=== PATIENT | female | born 2000 | race Caucasian/White ===

== ENCOUNTER 2021-07-03 14:31 | Outpatient (REF) | payer BC, SELFPAY ==
--- NOTE | ~2021-07-03 | XR_ITS ---
EXAMINATION: XR SINUSES CLINICAL INFORMATION: Sinusitis COMPARISON: None TECHNIQUE: 3 views of the sinuses were obtained. FINDINGS: Paranasal sinuses appear clear without air-fluid levels. No fractures are identified. No radiodense foreign bodies. XR/XR sinus min 3V IMPRESSION: Unremarkable sinus examination.
== END 2021-07-03 14:32 | disposition home or self-care (01) ==
LOC: HO.XRAY 14:31
PROVIDERS: Visit Provider Otolaryngology
DX: J32.9 Chronic sinusitis, unspecified (principal)
CPT/HCPCS: 70220

== ENCOUNTER 2024-10-15 09:33 | Outpatient (AMB) | payer BC, SELFPAY ==
--- NOTE | 2024-10-15 09:34 | MHC.PC.OV ---
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 Pt complains of chronic frontal PIERSON weekly on and off, usually in the mornings, relieved with aqvw-zuw-irnaeme NSAIDs. Patient denies any light sensitivity nausea vomiting any change in the pattern or intensity of the headaches for many years. Patient reports intermittent nasal congestion on and off but no allergic rhinitis. 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 1. Little interest or pleasure in doing things: not at all 2. Feeling down, depressed, or hopeless: not at all 3. Trouble falling or staying asleep, or sleeping too much: not at all 4. Feeling tired or having little energy: not at all 5. Poor appetite or overeating: not at all 6. Feeling bad about yourself - or that you are a failure or have let yourself or your family down: not at all 7. Trouble concentrating on things, such as reading the newspaper or watching television: not at all 8. Moving or speaking so slowly that other people could have noticed. Or the opposite - being so fidgety or restless that you have been moving around a lot more than usual: not at all 9. Thoughts that you would be better off or of hurting yourself in some way: not at all Total score: 0 Depression Screening Interpretation: Negative Depression Screening Done: Yes 05521 - PHQ-9 Billing: Yes Source: Developed by Drs. Mor Whyte, Marci Turner, Mati Jones and colleagues, with an educational elodia from [employer]. Thrive Questionnaire Date Thrive assessed: 10/15/24 I am a: Patient What is your living situation today?: I have a steady place to live Within the past 12 months, did the food you bought not last and you didn't have the money to get more?: Never true Within the past 12 months, did you worry whether your food would run out before you got money to buy more?: Never true Do you have trouble paying for medicines?: No Do you have trouble getting transportation to medical appointments?: No Do you have trouble paying your heating and electricity bill?: No Do you have trouble taking care of your child, family member or friend?: No Do you have trouble with day-to-day activities such as bathing, preparing meals, shopping, managing finances, etc.?: No Are you currently unemployed and looking for a job?: No Are you interested in more education?: Yes Please select the resources that you would like help with: None Currently or been in a relationship where the following occur: No concerns reported THRIVE Score: 0 AUDIT C Alcohol Use Questionnaire (AUDIT-C) 1. How often do you have a drink containing alcohol?: Never 3. How often do you have six or more drinks on one occasion?: Never Total Score: 0 DOC-7 AMB Questionnaire DOC-7 Date DOC - 7 assessed: 10/15/24 Feeling nervous, anxious, or on edge: 0 = Not at all Not being able to stop or control worryin = Not at all Worrying too much about different things: 0 = Not at all Trouble relaxin = Not at all Being so restless that it is hard to sit still: 0 = Not at all Becoming easily annoyed or irritable: 0 = Not at all Feeling afraid as if something awful might happen: 0 = Not at all Total DOC-7 score (0-4 normal; 5-9 mild; 10-14 moderate; 15-21 severe): 0 Source: Developed by Drs. Mor Whyte, Marci Turner, Mati Jones and colleagues, with an educational elodia from [employer]. DOC-7 Assessment Billing DOC-7 Assessment Tool: DOC-7 Assessment 08820 Review of Systems Const All systems reviewed & are unremarkable except as noted in HPI and below Eyes Reports no additional complaints ENT Reports no additional complaints Card Reports no additional complaints Resp Reports no additional complaints GI Reports no additional complaints Reports no additional complaints Physical exam (Primary Care) Vital Signs: Last Vital Signs Temp 97.6 F 10/15/24 09:36 Pulse 56 10/15/24 09:36 Resp 18 10/15/24 09:36 BP 110/68 10/15/24 09:36 Pulse Ox 100 10/15/24 09:36 Oxygen Delivery Method Room Air 10/15/24 09:36 BMI result Body Mass Index 25.2 Tobacco/Smoking Status: Tobacco use Status Tobacco use date assessed 10/15/24 10/15/24 09:41 Patient Tobacco Use Status Never used Tobacco 10/15/24 09:41 e-Cigarette/Vaping Use Never Used 10/15/24 09:41 PHQ-9: PHQ-9 Score PHQ-9: Total score 0 10/15/24 09:41 Depression Screening Interpretation: Negative Thrive Assessment: Date of Thrive Assessment Date Thrive assessed 10/15/24 10/15/24 09:41 Currently or been in a relationship where the following occur: No concerns reported Const General: no acute distress HENMT Head: Yes normal to inspection Face and sinus: Yes normal facial exam Mouth: Normal oral and palatal mucosa present Eyes General: appearance normal, both eyes and all related structures Neck Neck: Yes no lymphadenopathy and Yes supple Resp Effort & Inspection: normal respiratory effort Auscultation: clear to auscultation bilaterally Cardio Rhythm: regular rhythm Heart sounds: S1 normal heart sound present and S2 normal heart sound present GI Inspection: Yes normal to inspection Palpation (GI): Soft to palpation Percussion: Yes normal to percussion Auscultation: normal bowel sounds Coding Level of Care Code New Pt Prev Care 18-39yr(20123 Diagnoses Annual physical exam Z00.00 Normal pelvic exam Z01.419 Additional Codes DOC-7 Assessment Billing - DOC-7 Assessment Tool: DOC-7 Assessment 99905 ([id number]) PHQ-9 - 15699 - PHQ-9 Billing: Yes ([id number]) Assessment & Plan Assessment & Plan (1) Annual physical exam: Code(s): Z00.00 - Encounter for general adult medical examination without abnormal findings Category: Medical Plan: Well-balanced diet regular physical activity discussed with the patient. She will return for fasting blood work. For chronic headaches patient was advised to try ggtk-[id number]-chkdzso antihistamine and saline nasal spray and monitor the frequency, intensity. Patient will return for fasting blood work (2) Normal pelvic exam: Comment: customer experience retail clerk Yajaira Code(s): Z01.419 - Encounter for gynecological examination (general) (routine) without abnormal findings Category: Medical Plan: Follow-up with customer experience retail clerk Orders: Orders Complete Blood Count Auto Diff Today Z00.00 - Encounter for general adult medical examination without abnormal findings UA w Microscopic Today Z00.00 - Encounter for general adult medical examination without abnormal findings Comprehensive [place]. Panel Fast Today Z00.00 - Encounter for general adult medical examination without abnormal findings Lipid Panel Today Z00.00 - Encounter for general adult medical examination without abnormal findings TSH reflex Free T4 Today Z00.00 - Encounter for general adult medical examination without abnormal findings
[2024-10-15 09:36] VITALS: BP 110/68; PULSE 56; RESP 18; TEMP 36.4; O2SAT 100; BMI 25.2
--- OUTSIDE RECORDS SUMMARY | 2024-10-15 10:33 | XMS_ITS | Encounter Summary ---
Author Organization [facility] Address [address] [place] [address] Phone Care Team Providers Care Painter Helper Name Role Phone Tabitha Cook MD Primary Care Provider [phone] Encounter Details Date Type Department Care Team (Late st Contact Info) Description 10/22/2013 Documentation [facility] [place] [address] [place], [place] [id number] Family Medicine, Physician [facility] [place] [address] Social History Tobacco Use Types Packs/Day Years Used Date Smoking Tobacco: Never Assessed Comments Unknown Sex and Gender Information Value Date Recorded Sex Assigned at Female 01/14/2020 9:15 AM EDT Legal Sex Female 5:00 PM EDT Gender Identity Female 01/14/2020 9:15 AM EDT Sexual Orientation Straight 01/14/2020 9: 15 AM EDT documented as of this encounter Plan of Treatment Not on file documented as of this encounter Visit Diagnoses Not on filedocumented in this encounter Care Teams Painter Helper Relationship Specialty Start Date End Date Tabitha Cook MD PCP - General Pediatrics 01/17/21 10/03/22 documented as of this encounter
--- OUTSIDE RECORDS SUMMARY | 2024-10-15 10:33 | XMS_ITS | Encounter Summary ---
Author Organization [facility] Address [address] [place] [address] Phone Care Team Providers Care Lube Technician Name Role Phone Tabitha Cook MD Primary Care Provider [phone] Encounter Details Date Type Department Care Team (Late st Contact Info) Description 02/07/2017 Conversion Encounter [facility] - [address] [address] Social History Tobacco Use Types Packs/Day Years Used Date Smoking Tobacco: Never Comments:Never smoker Comments Unknown Sex and Gender Information Value [...] on filedocumented in this encounter Care Teams Lube Technician Relationship Specialty Start Date End Date Tabitha Cook MD PCP - General Pediatrics 01/17/21 10/03/22 documented as of this encounter
--- OUTSIDE RECORDS SUMMARY | 2024-10-15 10:33 | XMS_ITS | Clinical Summary ---
Author Organization [facility] Address [address] [place] [address] Care Team Providers Care Applications Engineer Name Role Phone No, Pcp Primary Care Provider Unavailabl e Allergies No known active allergies Medications multivitamin (THERAGRAN) tablet Take 1 tablet by mouth once a day. Active fish oil 340-1,000 mg capsule Take 1,000 mg by mouth once a day. Active magnesium gluconate (MAGONATE) 27 mg magnesium (500 mg) tablet Take 500 mg by mouth once a day. Active aspirin 325 mg EC tablet Take 1 tablet (325 mg total) by mouth once a day. 14 tablet 10/07/2023 Active Active Problems Problem Noted Date Diagnosed Date Synovitis of right knee 07/09/2023 Cyclops lesion of right knee 07/09/2023 Patellar tendonitis of right knee 11/27/2022 New ACL tear, right, initial encounter 2 Overview (10/28/2021): Added automatically from request for surgery [id number] Acute pain of right knee 07/12/2021 Family History Relation Name Status Comments Father Alive Mother Alive Social History Tobacco Use Types Packs/Day Years Used Date Smoking Tobacco: Never Smokeless Tobacco: Never Tobacco Cessation:Counseling Given: Not Answered Alcohol Use Standard Drinks/Week Comments Not Currently 0 (1 standard drink = 0.6 oz pur e alcohol) 2 drinks per month Comments No Sex and Gender Information Value Date Recorded Sex Assigned at Female 07/12/2021 12:03 PM EST Legal Sex Female 5:31 PM EST Gender Identity Female 07/12/2021 12:03 PM EST Sexual Orientation Straight 07/12/2021 12 :03 PM EST Last Filed Vital Signs Vital Sign Reading Time Taken Comments Blood Pressure - - Pulse - - Temperature - - Respiratory Rate - - Oxygen Saturation - - Inhaled Oxygen Concentration - - Weight 74.4 kg (164 lb) 10/01/2023 3:00 PM EDT Height 170.2 cm (5' 7 ) 10/01/2023 3:00 PM EDT Body Mass Index 25.69 10/01/2023 3:00 PM EDT Plan of Treatment Health Maintenance Due Date Last Done Comments HIV Screening 2000 Hepatitis C Screening 2000 Pap Smear 2000 Chlamydia Screening 2016 DTaP,Tdap,and Td Vaccines (7 - Td or Tdap) 03/03/2022 03/03/2012, 11/29/2004, 05/27/2002, Additional history exists COVID-19 Vaccine ( season) 2024 07/11/2021, 08/09/2020, 07/22/2020 Alcohol/Substance Use Screening 06/24/2024 Depression Screening and Follow-Up 06/24/2024 Social Drivers of Health Annual Screening 06/24/2024 Influenza Vaccine (Season Ended) 2025 05/16/2021, 05/20/2019, 02/27/2018, Additional history exists RSV Vaccine (60+ years old and patients) (1 - 1-dose 75+ series) 11/07/2075 Pneumococcal Vaccine: Pediatric (0-5 Years) and At-Risk Patients (6-50 Years) Aged Out 05/19/2001, 03/14/2001, 01/08/2001 No longer eligible based on patient's age to complete this topic Hepatitis B Vaccines Completed 08/01/2001, 2000, 2000 Varicella Vaccines Completed 01/08/2008, 02/16/2002 HPV Vaccines Completed 04/12/2014, 10/2013, 04/09/2013 Meningococcal Vaccine Completed 09/02/2017, 012 Insurance MOY LUDWIG [id number] [facility] [employer] Care Teams Applications Engineer Relationship Specialty Start Date End Date No, Pcp MOY PCP - General 10/02/22
--- OUTSIDE RECORDS SUMMARY | 2024-10-15 10:33 | XMS_ITS | Encounter Summary ---
Author Organization [facility] Address [address] [place] [address] Phone Care Team Providers Care Coconut Cooker Name Role Phone Tabitha Cook MD Primary Care Provider [phone] Encounter Details Date Type Department Care Team (Late st Contact Info) Description 08/30/2016 Documentation [facility] [place] Family Medicine [address] [place], [place] [id number] Family Medicine, Physician [facility] [place] [address] Social History Tobacco Use Types Packs/Day Years [...] on filedocumented in this encounter Care Teams Coconut Cooker Relationship Specialty Start Date End Date Tabitha Cook MD PCP - General Pediatrics 01/17/21 10/03/22 documented as of this encounter
--- OUTSIDE RECORDS SUMMARY | 2024-10-15 10:33 | XMS_ITS | Encounter Summary ---
Author Organization [facility] Address [address] [place] [address] Phone Care Team Providers Care Rate Engineer Name Role Phone Tabitha Cook MD Primary Care Provider [phone] Encounter Details Date Type Department Care Team (Late st Contact Info) Description 08/19/2010 [place] [facility] [place] [address] [place], [place] [phone] Family Medicine, Physician [facility] [place] [address] Social History Tobacco Use Types Packs/Day Years [...] on filedocumented in this encounter Care Teams Rate Engineer Relationship Specialty Start Date End Date Tabitha Cook MD PCP - General Pediatrics 01/17/21 10/03/22 documented as of this encounter
--- OUTSIDE RECORDS SUMMARY | 2024-10-15 10:33 | XMS_ITS | Encounter Summary ---
Author Organization [facility] Address [address] [place] [address] Phone Care Team Providers Care Evs Tech Name Role Phone Tabitha Cook MD Primary Care Provider [phone] Encounter Details Date Type Department Care Team (Late st Contact Info) Description 10/22/2016 Documentation [facility] [place] [address] [place], [place] [phone] Family Medicine, Physician [facility] [place] [address] Social History Tobacco Use Types Packs/Day Years [...] on filedocumented in this encounter Care Teams Evs Tech Relationship Specialty Start Date End Date Tabitha Cook MD PCP - General Pediatrics 01/17/21 10/03/22 documented as of this encounter
--- OUTSIDE RECORDS SUMMARY | 2024-10-15 10:33 | XMS_ITS | Clinical Summary ---
Author Organization [facility] Address [address] [place] [phone] Phone Care Team Providers Care Job Placement Officer Name Role Phone Unavailable Primary Care Provider Unavailabl e Allergies No known active allergies Medications ciclopirox 0.77 % cream APPLY TOPICALLY TO FEET TWICE DAILY. REPEAT NEEDED 1 Active Active Problems Problem Noted Date Diagnosed Date New ACL tear, right, initial encounter 2 Overview (01/06/2022): 09/2021, S/p post surgical repair 11/[address] Bailey at [facility] Assessment & Plan (01/06/2022 11:17 AM EDT): Pt compliant with post-operative bracing and care. Followed by [facility]. Sports PE form completed today allowing Rugby team participation but not actual play for her senior year. Dysmenorrhea 01/19/2021 Overview (01/19/2021): Moderate, well managed with OTC NSAIDs. Suggest beginning the day before her period for maximum benefit, consider OCP as needed Resolved Problems Problem Noted Date Diagnosed Date Resolved Date Chronic tension-type headach e, not intractable 10/10/2018 01/17/2021 Overview (10/10/2018): No red flags, very mild, resolve with NSAID or no meds. Assessment & Plan (10/10/2018 3:03 PM EDT): Discussed return precautions (worsening, red-flags). Pain of cervical facet joint 10/29/2016 01/17/2021 Overview (09/29/2017): Persistent neck pain after soccer injury 2014. Seen by Dr. Dickens's office 10/08 and diag with cervical facet injury. Referred to PT for active cervical stabilization program. After PT and some massage and chiropractic tx pain persists. MRI of C Spine shows 2 level annular tears. 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 To return to PT for C Spine strain and home exercise program. Referred to Dr Shultz for spinal injection for the annular tears. 10/09. Assessment & Plan (01/14/2020 9:24 AM EDT): Gets sore easily, but no pain anymore. Immunizations Immunization Administration Dates Next Due DTaP 5 11/29/2004, 2,05/19/2001,03/14,01/08/2001 H1N1 03/31/2009 HPV, Quadrivalent 04/12/2014,08/26/2013,04/09/20 13 Hep A, ped/adol 04/12/2014,12/14/2010 Hep B, ped/adol 08/01/2001,2000,2000 Hib (PRP-T) 02/16/2002, 1,03/14/2001,01/08 IPV 11/29/2004, 1,03/14/2001,01/08 Influenza, injectable, quadr ivalent, preservative free 05/16/2021,05/20/2019,02/27/2018,03/11,05/16/2016 Influenza, injectable, trivalent 03/31/2009,06/24,06/13/2005 Influenza, intranasal, quadrivalent 04/28/2015,1 ,04/09/2013 Influenza, intranasal, trivalent 03/03/2012,05/25 MMR 11/29/2004,11/11/2001 Meningococcal B Trumenba 05/20/2019,10/10/2018 Meningococcal Conj (Menactra) MCV4P 09/02/2017,0 03/03/2012 Pneumococcal Conjugate 05/19/2001,03/14/2001, Tdap 03/03/2012 Varicella 01/08/2008,02/16/2002 Family History Medical History Relation Name Comments Hypertension Father All Kidney failure Maternal Grandfather Cataracts Maternal Grandmother Glaucoma Maternal Grandmother Hypertension Maternal Grandmother Macular degeneration Maternal Grandmother Melanoma Maternal Grandmother Stroke Maternal Grandmother Hyperlipidemia Mother Kathleen Skin cancer Mother Kathleen Heart attack Paternal Grandfather Relation Name Status Comments Father All Alive Father: Alive a nd well Maternal Grandfather Maternal Grandmother Alive Mother Kathleen Alive Mother: Alive a nd well Other Family history of *Heart Disease, No family history of Obesity, Family history of Migraines, No family history of Developmental dislocation of hip, No family history of *Sudden /[place] under 55, Family history of Cancer, Family history of Allergies, No family history of Seizure disorder, No family history of ADD/ADHD, Family history of *CVA/Stroke, No family history of Deafness, No family history of Asthma, Family history of Sudden /[place] under 55, Family history of Melanoma, No family history of *Thrombophilia, No family history of Strabismus, No family history of Diabetes mellitus, No family history of Hyperlipidemia Paternal Grandfather Alive Paternal Grandmother Alive Social History Tobacco Use Types Packs/Day Years Used Date Smoking Tobacco: Never Smokeless Tobacco: Never Tobacco Cessation:Counseling Given: Yes Comments:Never smoker Alcohol Use Standard Drinks/Week Comments Yes 0 (1 standard drink = 0.6 oz pure alcohol) Social drinking in moderation 0-1x month Hunger/Food Answer Date Recorded In the last 12 months, did y ou or your family ever eat less than you felt you should because there wasn't enough money for food? No 01/04/2022 Stable Housing Answer Date Recorded Are you worried that in the next 2 months you may not have stable housing? No 01/04/2022 Transportation Concerns Answer Date Rec orded In the last 12 months, have you or your family ever had to go without healthcare because you didn't have a way to get there? No 01/04/2022 Hazards in Home Answer Date Recorded Think about the place you li ve. Do you have problems with any of the following? Pests (mice or roaches), mold, no/not working smoke detectors, water leaks, no window guards. No 2021 Financing Utilities Answer Date Recorde d In the last 12 months, has t he electric, gas, oil, or water company threatened to shut off your services in your home? No 01/04/2022 Safety at Home Answer Date Recorded Are you or your family worried about feeling saf e in your home? No 01/04/2022 Outside Support Answer Date Recorded Do you feel that you need mo re support from other people or programs to help you care for yourself or your family? No 01/04/2022 Understanding Health Concerns Answer Da te Recorded Do you need help understandi ng your or your child's healthcare needs (diagnosis, medications, plan, etc.)? No 01/04/2022 Financing Health Concerns Answer Date R ecorded In the last 12 months, was t here a time when your child needed to see a doctor or get medications or supplies but could not because of cost? No 01/04/2022 Missing School or Work Answer Date Roberto rded Did you or your child miss s chool or work because of a health problem that could have been avoided? No 01/04/2022 Comments No Sex and Gender Information Value Date Recorded Sex Assigned at Female 01/14/2020 9:15 AM EDT Legal Sex Female 5:00 PM EDT Gender Identity Female 01/14/2020 9:15 AM EDT Sexual Orientation Straight 01/14/2020 9: 15 AM EDT Last Filed Vital Signs Vital Sign Reading Time Taken Comments Blood Pressure 117/80 01/04/2022 10:13 AM EDT Pulse 93 01/04/2022 10:13 AM EDT Temperature 36.1 ??C (97 ??F) 06/20/2021 9:23 AM EST Respiratory Rate - - Oxygen Saturation 100% 02/27/2018 6:15 PM EDT Inhaled Oxygen Concentration - - Weight 73.2 kg (161 lb 6.4 oz) 01/04/2022 10:13 AM EDT Height 171.7 cm (5' 7.6 ) 01/04/2022 10:13 AM ED T Body Mass Index 24.83 01/04/2022 10:13 AM EDT Plan of Treatment Health Maintenance Due Date Last Done Comments DTaP,Tdap,and Td Vaccines (7 - Td or Tdap) 03/03/2022 03/03/2012, 11/29/2004, 05/27/2002, Additional history exists Influenza Vaccines (#1) 2024 05/16/20, 05/20/2019, 02/27/2018, Additional history exists COVID-19 Vaccine ( season) 2024 07/11/2021, 08/09/2020, 07/22/2020 Pneumococcal Vaccine Aged Out 05/19/2001, 03/14/2001, 01/08/2001 No longer eligible based on patient's age to complete this topic Hepatitis B Vaccines Completed 08/01/2001, 2000, 2000 HIB Vaccines Completed 02/16/2002, 04/25, 03/14/2001, Additional history exists IPV Vaccines Completed 11/29/2004, 04/25, 03/14/2001, Additional history exists MMR Vaccines Completed 11/29/2004, 11/11/2001 Varicella Vaccines Completed 01/08/2008, 02/16/2002 HPV Vaccines Completed 04/12/2014, 10/2013, 04/09/2013 Hepatitis A Vaccines Completed 04/12/2014, 12/15/19 11 Meningococcal Vaccine Completed 09/02/2017, 012 Men B Vaccine Completed 05/20/2019, 10/10/2018 Insurance [facility]
--- OUTSIDE RECORDS SUMMARY | 2024-10-15 10:33 | XMS_ITS | Referral Summary ---
Author Organization [facility] Address [address] [place] [address] Care Team Providers Care Manager Decision Support Name Role Phone No, Pcp Primary Care [...] (10/28/2021): Added automatically from request for surgery [id number] Acute pain of right knee 07/12/2021 Social History Tobacco Use Types Packs/Day Years [...] 10/01/2023 3:00 PM EDT Plan of Treatment Not on file Insurance [facility] [employer] Care Teams Manager Decision Support Relationship Specialty Start Date End Date Og Duran [place] PCP - General 10/02/22
== END 2024-10-15 10:00 | disposition home or self-care (01) ==
LOC: HO.HMCC 09:33
PROVIDERS: PCP Pediatrics; Visit Provider Internal Medicine
DX: Z00.00 Encounter for general adult medical examination without abnormal findings (principal); Z01.419 Encounter for gynecological examination (general) (routine) without abnormal findings

== ENCOUNTER → 2024-10-15 09:33 | Outpatient (BNVA) | payer BC, SELFPAY | PROVIDERS: PCP Pediatrics; Visit Provider Internal Medicine | DX: Z00.00 Encounter for general adult medical examination without abnormal findings (principal) | CPT/HCPCS: 96127 ==

== ENCOUNTER 2024-10-17 08:03 | Outpatient (REF) | payer BC, SELFPAY ==
--- OUTSIDE RECORDS SUMMARY | 2024-10-17 08:05 | XMS_ITS | Clinical Summary ---
Author Organization [place] [address] [address] [facility] Address [address] [facility] [place] [address] Phone Care Team Providers Care Brick Baker Name Role Phone Physician, No Pcp Primary Care Provider Unavaila ble Allergies No known active allergies Medications magnesium gluconate (MAG-G) 27 mg magnesium (500 mg) tablet Take 500 mg by mouth. Active multivitamin tablet Take 1 tablet by mouth 1 (one) time each day. Active omega-3 fatty acids-fish oil 340-1,000 mg capsule Take 1,000 mg by mouth. Active Encounters Date Type Department Care Team Description 07/31/2024 2:00 PM EST Office Visit Obstetrics and Gynecology [address] [address] Debra Cohn CNM Encounter for gynecological examination without abnormal finding (Primary Dx); Screen for STD (sexually transmitted disease) from Last 3 Months Surgical History Surgery Date Site/Laterality Comments ANTERIOR CRUCIATE LIGAMENT REPAIR 06/24/2021 - 2 Right Family History Medical History Relation Name Comments Breast cancer Neg Hx Ovarian cancer Neg Hx Uterine cancer Neg Hx Relation Name Status Comments Father Alive Mother Alive Social History Tobacco Use Types Packs/Day Years Used Date Smoking Tobacco: Never Smokeless Tobacco: Never Tobacco Cessation:Counseling Given: Not Answered Alcohol Use Standard Drinks/Week Comments Never 0 (1 standard drink = 0.6 oz pur e alcohol) Comments No Sex and Gender Information Value Date Recorded Sex Assigned at Not on file Legal Sex Female 8:27 PM EST Gender Identity Not on file Sexual Orientation Not on file Obstetrics History Para Term AB IAB SAB Ectopic Multiple Livin g Live Births 0 0 0 0 0 0 0 0 0 0 0 Last Filed Vital Signs Vital Sign Reading Time Taken Comments Blood Pressure 97/58 07/31/2024 2:11 PM EST Pulse 83 07/31/2024 2:11 PM EST Temperature - - Respiratory Rate - - Oxygen Saturation - - Inhaled Oxygen Concentration - - Weight 75 kg (165 lb 6.4 oz) 07/31/2024 2:11 PM EST Height 170.2 cm (5' 7 ) 07/31/2024 2:11 PM EST Body Mass Index 25.91 07/31/2024 2:11 PM EST Plan of Treatment Health Maintenance Due Date Last Done Comments DTaP,Tdap,and Td Vaccines (7 - Td or Tdap) 03/03/2022 03/03/2012, 11/29/2004, 05/27/2002, Additional history exists Depression Screening 07/19/2023 HIV Screening 07/19/2023 Hepatitis C Screening 07/19/2023 Social Influencers of Health Screening 07/19/2023 COVID-19 Vaccine ( season) 2024 07/11/2021, 08/09/2020, 07/22/2020 Influenza Vaccine (Season Ended) 2025 05/16/2021, 05/20/2019, 02/27/2018, Additional history exists Gonorrhea/Chlamydia Screening 07/31/2025 07/31/2024 Cervical Cancer Screening: Pap Smear 07/31/2027 07/31/2024 Pneumococcal Vaccine: Pediatrics (0 to 5 Years) and At-Risk Patients (6 to 64 Years) Aged Out 05/19/2001, 03/14/2001, 01/08/2001 No [...] 04/09/2013 Hepatitis A Vaccines Completed 04/12/2014, 12/15/19 Meningococcal ACWY Vaccine Completed 09/02/2017, Meningococcal B Vaccine Completed 05/20/2019, 10/10 RSV Immunization Patients Under 20 months Aged Out No longer eligible based on patient's age to complete this topic Procedures Procedure Name Priority Date/Time Associated Diagnosis Comments CHLAMYDIA TRACHOMATIS AND NEISSERIA GONORRHOEAE BY TMA, THINPREP Routine 07/31/2024 3:01 PM EST Encounter for gynecological examination without abnormal finding PAP SMEAR Routine 07/31/2024 3:01 PM EST Encounter for gynecological examination without abnormal finding TRICHOMONAS VAGINALIS PCR Routine 07/31/2024 3:01 PM EST Encounter for gynecological examination without abnormal finding from Last 3 Months Results * Chlamydia trachomatis and neisseria gonorrhoeae by tma, thinprep (07/31/2024 3:01 PM EST) N. gonorrhoeae, RNA Probe Negative Negative LAB MICROBIOLOGY METHOD 08/04/2024 1:11 PM EST [facility] Chlamydia, RNA Probe Negative Negative LAB MICROBIOLOGY METHOD 08/04/2024 1:11 PM EST [facility] Brushing/Spatula Cervix uteri structure / Unknown 07/31/2024 3:01 PM EST 08/04/2024 6:40 AM EST Debra Cohn CNM LAB CYTOLOGY ORDERABLES Final Result [facility] [address] [place] [address], * Trichomonas vaginalis molecular study (07/31/2024 3:01 PM EST) Trichomonas vaginalis Negative Negative LAB MICROBIOLOGY METHOD 08/04/2024 1:21 PM EST [facility] Brushing/Spatula Cervix uteri structure / Unknown 07/31/2024 3:01 PM EST 08/04/2024 6:40 AM EST Debra MUELLER LAB BLOOD ORDERABLES Final Res ult [facility] [address] [place] [address], * Pap smear (07/31/2024 3:01 PM EST) Interpretation Negative for intraepithelial lesion or malignancy 08/06/2024 10:00 AM [facility] General Categorization Negative 08/06/2024 10:00 AM [facility] LMP 07/08/2024 08/06/2024 10:00 AM [facility] Specimen Adequacy Satisfactory for evaluation, endocervical/[place] sformation zone component present 08/06/2024 10:00 AM [facility] Pap Methodology Liquid Based Pap Test 08/06/2024 10:00 AM [facility] Disclaimer The Pap test is a screening test which carries an inherent false negative rate. These test results should be correlated with the patient's clinical findings and history. This Pap test was processed using an automated screening system. Technical cytopathology services provided by [facility], at [address] [place] [address] (CLIA # [id number]/Albertina Martin MD, Learning Administrator.) 08/06/2024 10:00 AM [facility] Console Pap Interpretation Reported 08/06/2024 10:00 AM [facility] Brushing/Spatula Cervix uteri structure / Unknown 07/31/2024 3:01 PM EST 07/31/2024 3:01 PM EST Debra Cohn CNM LAB CYTOLOGY ORDERABLES Final Result [facility] [address] [place] [address], [place] [phone] from Last 3 Months Insurance [facility] Care Teams Brick Baker Relationship Specialty Start Date End Date Physician, No Pcp PCP - General 05/07/24
--- OUTSIDE RECORDS SUMMARY | 2024-10-17 08:05 | XMS_ITS | Clinical Summary ---
Author Organization [facility] Address [address] [place] [address] Phone Care Team Providers Care Molecular Geneticist Name Role Phone Unavailable Primary Care Provider Unavailabl e Allergies No known active allergies Medications ciclopirox 0.77 % cream APPLY TOPICALLY TO FEET TWICE DAILY. REPEAT NEEDED 1 Active Active Problems Problem Noted Date Diagnosed Date New ACL tear, right, initial encounter 2 Overview (01/06/2022): 09/2021, S/p post surgical repair 11/[address] Bailey at [facility] Assessment & Plan (01/06/2022 11:17 AM EDT): Pt compliant with post-operative bracing and care. Followed by [facility]. Sports PE form completed today allowing Rugby [...] of hip, No family history of *Sudden /[place] under 55, Family history of Cancer, Family history of Allergies, No family history of Seizure disorder, No family history of ADD/ADHD, Family history of *CVA/Stroke, No family history of Deafness, No family history of Asthma, Family history of Sudden /[place] under 55, Family history of Melanoma, No [...] Men B Vaccine Completed 05/20/2019, 10/10/2018 Insurance [facility] [employer]
--- OUTSIDE RECORDS SUMMARY | 2024-10-17 08:05 | XMS_ITS | Patient Health Record ---
Author Organization [facility] Address [address] [facility] [place] [address] Care Team Providers Care Drainlayer Name Role Phone Keesha Cross Unavailable [phone] Reason For Referral No Information Social History Tobacco Use: Social History Observation Description Date Details (start date - stop date) Never Smoker NA - NA Tobacco Use/Smoking Question Answer Notes Are you a: nonsmoker Additional Findings: Tobacco Non-User Current no n-smoker Alcohol Screen Question Answer Notes Did you have a drink containing alcohol in the p ast year? No Points 0 Interpretation Negative Tobacco use other than smoking: Question Answer Notes Are you an other tobacco user? No Plan Of Treatment No Information Insurance Providers Payer Name Payer Address Payer Phone Subscriber Number Group Number Insured Name Patient Relationship to Insured Coverage Start Date Coverage End Date [facility] [id number] [place] [address] [id number] All [place] Child - Insured has Financial Responsibility 0 Medical (General) History Surgical History Surgery Date(Month/Year) ACL Reconstructions 11-23-21
--- OUTSIDE RECORDS SUMMARY | 2024-10-17 08:05 | XMS_ITS | Encounter Summary ---
Author Organization [facility] Address [address] [place] [address] Phone Care Team Providers Care Insurance Follow Up Rep Name Role Phone Tabitha Cook MD Primary Care Provider [phone] Encounter Details Date Type Department Care Team (Late st Contact Info) Description 10/22/2013 Documentation [facility] [place] [address] [place], [place] [id number] Family Medicine, [place] [address] Social History Tobacco Use Types Packs/Day Years [...] on filedocumented in this encounter Care Teams Insurance Follow Up Rep Relationship Specialty Start Date End Date Tabitha Cook MD PCP - General Pediatrics 01/17/21 10/03/22 documented as of this encounter
--- OUTSIDE RECORDS SUMMARY | 2024-10-17 08:05 | XMS_ITS | Encounter Summary ---
Author Organization [facility] Address [address] [place] [address] Phone Care Team Providers Care Correspondence Transcriber Name Role Phone Tabitha Cook MD Primary Care Provider [phone] Encounter Details Date Type Department Care Team (Late st Contact Info) Description 02/07/2017 Conversion Encounter [facility] - [address] [address] Social History Tobacco Use Types Packs/Day Years [...] on filedocumented in this encounter Care Teams Correspondence Transcriber Relationship Specialty Start Date End Date Tabitha Cook MD PCP - General Pediatrics 01/17/21 10/03/22 documented as of this encounter
--- OUTSIDE RECORDS SUMMARY | 2024-10-17 08:05 | XMS_ITS | Encounter Summary ---
Author Organization [facility] Address [address] [place] [address] Phone Care Team Providers Care Marine Insurance Claim Examiner Name Role Phone Tabitha Cook MD Primary Care Provider [phone] Encounter Details Date Type Department Care Team (Late st Contact Info) Description 10/22/2016 Documentation [facility] [place] [facility] [address] [place], [place] [phone] Family Medicine, Physician [facility] [place] [address] Social History Tobacco Use Types Packs/Day Years [...] on filedocumented in this encounter Care Teams Marine Insurance Claim Examiner Relationship Specialty Start Date End Date Tabitha Cook MD PCP - General Pediatrics 01/17/21 10/03/22 documented as of this encounter
--- OUTSIDE RECORDS SUMMARY | 2024-10-17 08:05 | XMS_ITS | Encounter Summary ---
Author Organization [facility] Address [address] [place] [address] Phone Care Team Providers Care Chocolate Refining Roller Name Role Phone Tabitha Cook MD Primary Care Provider [phone] Encounter Details Date Type Department Care Team (Late st Contact Info) Description 08/30/2016 Documentation [facility] [place] Family Medicine [address] [place], [place] [phone] Family Medicine, Physician [facility] [place] [address] Social History Tobacco Use Types Packs/Day Years [...] on filedocumented in this encounter Care Teams Chocolate Refining Roller Relationship Specialty Start Date End Date Tabitha Cook MD PCP - General Pediatrics 01/17/21 10/03/22 documented as of this encounter
--- OUTSIDE RECORDS SUMMARY | 2024-10-17 08:05 | XMS_ITS ---
Author Organization [facility] Address [address] [place] [address] Care Team Providers Care Object Oriented Developer Name Role Phone Keesha Cross Unavailable [phone] REASON FOR VISIT ON Encounters Encounter Location Date Provider Diagnosis [facility] [address] [place] [address] 05/15/2023 Keesha Cross Plan Of Treatment No Information Progress Notes * Vida WITTDOB:2000 (22 yo F)Acc No.[id number]:05/15/2023 Patient:?Vida Witt :2000???Age:22 Y???Sex:Female Address:[address] [place] [address], [place], [address] * true * Date:? Generated for Reji clayton/Phillip/eTransmitting on:?10/17/2024 08:05 AM EDT
--- OUTSIDE RECORDS SUMMARY | 2024-10-17 08:05 | XMS_ITS | Encounter Summary ---
Author Organization [facility] Address [address] [place] [address] Phone Care Team Providers Care Electrical Logging Operator Name Role Phone Tabitha Cook MD Primary Care Provider [phone] Encounter Details Date Type Department Care Team (Late st Contact Info) Description 08/19/2010 Documentation [facility] [place] [address] [place], [place] [phone] Family Medicine, Physician [facility] [place] [address] Social History Tobacco Use Types Packs/Day Years [...] on filedocumented in this encounter Care Teams Electrical Logging Operator Relationship Specialty Start Date End Date Tabitha Cook MD PCP - General Pediatrics 01/17/21 10/03/22 documented as of this encounter
--- OUTSIDE RECORDS SUMMARY | 2024-10-17 08:05 | XMS_ITS | Referral Summary ---
Author Organization [facility] Address [address] [place] [address] Care Team Providers Care Suspension Cord Tier Name Role Phone No, Pcp Primary Care [...] (10/28/2021): Added automatically from request for surgery [id number] Acute pain of right knee 07/12/2021 Social [...] Plan of Treatment Not on file Insurance [facility] [employer] Care Teams Suspension Cord Tier Relationship Specialty Start Date End Date Og Duran [place] PCP - General 10/02/22
--- OUTSIDE RECORDS SUMMARY | 2024-10-17 08:05 | XMS_ITS ---
Author Organization [facility] Address [address] [place] [address] Care Team Providers Care Pressure Tank Operator Name Role Phone Keesha Cross Unavailable [phone] Social History Tobacco Use: Social History Observation [...] Are you an other tobacco user? No Vital Signs Height 5 ft 7 in in 07/23/2023 Weight 160 lb lbs 07/23/2023 BMI 25.06 kg/m2 07/23/2023 Encounters Encounter Location Date Provider Diagnosis [address] [address] 07/23/2023 Keesha Cross Plan Of Treatment No Information Progress Notes * Vida WITTDOB:2000 (23 yo F)Acc No.[id number]:07/23/2023 Progress Notes Patient:?EDUARKathiaia Provider:?Keesha Cross DPM :2000???Age:22 Y???Sex:Female D ate:07/23/2023 Address:[address] [place], [place] [address] [id number] Subjective: * Chief Complaints: * ??? * ROS:?General/Constitutional:?Nausea?denies.?Vomiting?denies.?Hunger Thirst?denies.?Loss appetite?denies.?Chills?denies.?Fatigue?denies.?Fever?denies.?Night Sweats?denies.?Unexplained weight loss?denies.?Unexplained weight gain?denies.?HEENTM:?Dentures?denies.?Dizziness?denies.?Glasses/contacts?admits.?Retinopathy?de nies.?Blurred/double vision?denies.?TMJ?denies.?Discharge/drainage?denies.?Implants?denies.?Sore throat?denies.?Dental implants?denies.?Hard of hearing ?denies.?Difficulty chewing/swallowing/speaking?denies.?Nose bleeds?denies.?Sore mouth?denies.?Respiratory:?On Oxygen?denies.?Pneumonia/pleurisy?denies.?Bronchitis?denies.?Emphysema?denies.?C oughing?denies.?Cough blood?denies.?Shortness of breath?denies.?Wheezing?denies.?Cardiovascular:?Pacemaker?denies.?MVP?denies.?WPW?denies.?CHF?denies.?Heart attack?denies.?Septal defect?denies.?Rapid beat?denies.?Chest pain ?denies.?Atrial Fib.?denies.?Murmur/Palpitations?denies.?Gastrointestinal:?Hemorrhoids?denies.?Stomach/Abdominal pain?denies.?Dark blood stool?denies.?Irritable bowel ?denies.?Constipation?denies.?Diarrhea?denies.?Hematology:?Swelling?denies.?Clots?denies.?Varicose Veins?denies.?Bruising?denies.?Bleeding problem?denies.?Genitourinary:?Blood urine?denies.?Frequent/Painfu/urination/bladder control?denies.?Kidney stones?denies.?Infection (UTI)?denies.?Nephropathy?denies.?sex trans dis (STD)?denies.?Prostate?denies.?Musculoskeletal:?Hammertoes?denies.?Bunions?denies.?Back Pain?denies.?Muscle Cramps/ Resting?denies.?Muscle cramps / walking?denies.?Generalized aches and pains?denies.?Weakness?denies.?Integ.:?Alexander?denies.?Scars?denies.?Corns/calluses?denies.?Ingrown nails?denies.?Painful nails?denies.?Open Sores?denies.?Rashes?denies.?Neurologic:?Difficulty sleeping?denies.?Brain disorder?denies.?Numbness?denies.?Balance trouble?denies.?Confusion?denies.?Fainting/blackouts?denies.?Tingling?denies.?Tr emors?denies.? * Medical History:? * Surgical History:?ACL Recons tructions 11-23-21. * Family History:?Mother: tania good?Father: alive, diagnosed with Unspecified essential hypertension.?Maternal Grand Mother: poor circulation, diagnosed with Family history of arthritis.?Paternal Grand Mother: diagnosed with Family history of arthritis.?Paternal Grand Father: diagnosed with Family history of arthritis.?Maternal Grand Father: diagnosed with Family history of arthritis, Unspecified essential hypertension, Other malignant neoplasm of unspecified site.? * Social History:?Tobacco Use:?Tobacco Use/Smoking?Are you a:?nonsmoker ?Additional Findings: Tobacco Non-User?Current non-smoker ?Tobacco use other than smoking?Are you an other tobacco user??No ???Drugs/Alcohol:?Drugs?Have you used drugs other than those for medical reasons in the past 12 months??No ?Alcohol Screen?Did you have a drink containing alcohol in the past year??No ?Points?0 ?Interpretation?Negative ???Miscellaneous:?Caffeine: yes, frequency: Occassional. ?Children: no. ?Exercise: yes, Yoga, Daily Gym Visits, Active walker. ?Marital status: single. 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 Objective: * Vitals:?Ht: 5 ft 7 in, Wt:16 0 lb, BMI:25.06, Shoe size: 9, Ht-cm: 170.18 cm, Wt- k.57 kg. Assessment: Plan: * Treatment: * Images: * The named appointment provid er may or may not be the originator of this progress note, and it is not deemed complete until electronically signed by the appointment provider. Sign off status: Pending * Provider:?Keesha Cross DPM Date:? Generated for Reji clayton/Phillip/Carlositting on:?10/17/2024 08:05 AM EDT
--- OUTSIDE RECORDS SUMMARY | 2024-10-17 08:06 | XMS_ITS | Clinical Summary ---
Author Organization [facility] Address [address] [place] [address] Care Team Providers Care Field Servicer Name Role Phone No, Pcp Primary Care [...] (10/28/2021): Added automatically from request for surgery [id number] Acute pain of right knee 07/12/2021 Family [...] Vaccine Completed 09/02/2017, 012 Insurance MOY LUDWIG [id number] [facility] [employer] Care Teams Field Servicer Relationship Specialty Start Date End Date No, Pcp MOY PCP - General 10/02/22
[2024-10-17 08:18] LABS: MANUAL DIFF FLAG NO
[2024-10-17 08:52] LABS: Basophils Absolute Auto 0.1 X10*3/uL (0.0-0.2); Basophils Percent Auto 1.1 % (0-2); Eosinophils Absolute Auto 0.2 X10*3/uL (0.0-0.4); Eosinophils Percent Auto 4.2 % (0-4); Hematocrit 36.4 % (37.0-47.0); Hemoglobin 12.6 g/dl (12.0-16.0); Imm Gran Abs Auto 0.01 X10*3/uL (0.00-0.03); Imm Gran Pct Auto 0.2 % (0.0-0.4); Lymphocytes Absolute Auto 2.4 X10*3/uL (1.2-4.9); Lymphocytes Percent Auto 45.2 % (20-40); Mean Corpuscular HGB Conc 34.6 g/dl (31.0-35.0); Mean Corpuscular Hemoglobin 30.7 pg (27.0-33.0); Mean Corpuscular Volume 88.6 fL (80.0-98.0); Mean Platelet Volume 10.4 fL (9.4-12.3); Monocytes Absolute Auto 0.3 X10*3/uL (0.1-1.2); Neutrophils Absolute Auto 2.3 x10*3/uL (2.0-8.3); Neutrophils Percent Auto 43.3 % (45-73); Platelet Count 220 X10*3/uL (160-400); Red Blood Count 4.11 X10*6/uL (4.20-5.50); Red Cell Distribution Width 13.1 % (11.0-16.0); White Blood Count 5.3 X10*3/uL (4.8-10.8)
[2024-10-17 09:38] LABS: Alanine Aminotransferase 27 U/L (0-31); Albumin Level 4.3 g/dL (3.5-5.0); Alkaline Phosphatase 39 U/L (39-117); Anion Gap 11 (12-20); Aspartate Amino Transferase 27 U/L (5-31); Bilirubin Total 0.4 mg/dL (0.0-1.0); Blood Urea Nitrogen 14 mg/dL (9-16); Carbon Dioxide 23 mmol/L (22-29); Chloride 109 mmol/L (96-108); Cholesterol 197 mg/dL (<200); Estimated Glomerular Filt Rate > 60; Glucose Fasting 85 mg/dL (60-99); HDL Cholesterol 63 mg/dL (>40); LDL Cholesterol Calculated 127 mg/dL (<100); Potassium 4.1 mmol/L (3.3-5.1); Sodium 139 mmol/L (135-145); Total Protein 6.6 g/dL (6.5-8.0); Triglycerides 39 mg/dL (<150)
[2024-10-17 09:56] LABS: TSH reflex Free T4 1.25 uIU/mL (0.32-4.0)
== END 2024-10-17 08:04 | disposition home or self-care (01) ==
LOC: HO.LAB 08:03
PROVIDERS: PCP Internal Medicine; Visit Provider Internal Medicine
DX: Z00.00 Encounter for general adult medical examination without abnormal findings (principal)
CPT/HCPCS: 36415; 80053; 80061; 84443; 85025

== ENCOUNTER 2025-06-09 12:01 | Outpatient (AMB) | payer BC, SELFPAY ==
--- OUTSIDE RECORDS SUMMARY | 2025-03-30 08:00 | XMS_ITS ---
Author Organization [facility] Address [address] [place] [id number] Care Team Providers Care Collection Technician Name Role Phone Roxana Gonzalez MD Primary Care Provider Keesha Stock Unavailable [phone] Allergies No Known Allergies Social History Tobacco [...] Encounters Encounter Location Date Provider Diagnosis [address] [address] 03/30/2025 Keesha Cross Plan Of Treatment Next Appt Details Provider Name:Kateryna sterling, 06/14/2025 02:00:00 PM, [address] [place] [address], [phone], Progress Notes * Vida WITTDOB:2000 (24 yo F)Acc No.[id number]:03/30/2025 Progress Notes Patient: Vida LOWE Provider: Aristides Cross DPM :2000 A ge:24 Y S ex:Female Date:03/30/2025 Address:[address] [place], [place] [address], [id number] Pcp:Roxana Gonzalez MD Subjective: * Chief Complaints: [...] enies. 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 C [...] Aristides Cross DPM Date: Generated for Reji clayton/Phillip/Manolo on: 08/10/2024 03:54 PM EST
--- OUTSIDE RECORDS SUMMARY | 2025-06-06 23:17 | XMS_ITS | Encounter Summary ---
Author Organization [facility] Address [address] [place] [id number] Phone Care Team Providers Care Saw Operator Name Role Phone Roxana Gonzalez MD Primary Care Provider [phone] Reason for Visit * Reason Comments Abdominal Pain Encounter Details Date Type Department Care Team (Late st Contact Info) Description 06/06/2025 11:17 PM EST - 06/07/2025 12:24 AM EST Emergency [facility] [address] [place] [address] Dari Chen MD [address] [place] [address] [email or web address] Discharge Disposition: Home or Self Care Social History Tobacco Use Types Packs/Day Years Used Date Smoking Tobacco: Never Assessed Education Answer Date Recorded Are you interested in more education? Not on tommie e 10/20/2022 Are you concerned about learning? Not on file 10/20/2022 No 10/20/2022 No 10/20/2022 Digital Access Answer Date Recorded No 11/18/2022 No 11/18/2022 Reliable internet access at home? Not on file 11/18/2022 Device with a working camera? Not on file Intimate Partner Violence Answer Date R ecorded Are you denied basic needs s uch as food, clothing, or medical care? No 06/06/2025 In the past 12 months have y ou been in a relationship with a person who hurts, threatens, or tries to control you? No 06/06/2025 Are you denied basic needs s uch as food, clothing, or medical care? No 06/06/2025 In the past 12 months have y ou been in a relationship with a person who hurts, threatens, or tries to control you? No 06/06/2025 Comments Unknown Sex and Gender Information Value Date Recorded Sex Assigned at Not on file Legal Sex Female 9:46 AM EDT Gender Identity Not on file Sexual Orientation Not on file documented as of this encounter Last Filed Vital Signs Vital Sign Reading Time Taken Comments Blood Pressure 102/69 06/07/2025 12:22 AM EST Pulse 75 06/07/2025 12:22 AM EST Temperature 36.1 C (97 F) 06/07/2025 12:22 AM EST Respiratory Rate 18 06/07/2025 12:22 AM EST Oxygen Saturation 99% 06/07/2025 12:22 AM EST Inhaled Oxygen Concentration - - Weight 74.8 kg (165 lb) 06/07/2025 12:22 AM EST Height 170.2 cm (5' 7 ) 06/07/2025 12:22 AM EST Body Mass Index 25.84 06/07/2025 12:22 AM EST documented in this encounter Functional Status * Calculated C-SSRS Risk Score (Lifetime/Recent) Answer Date of Assessment Author No Risk Indicated 06/06/2025 9:04 PM EST Dai Potts RN * [place] Suicide Severity Rating Scale (Screener/Recent Self-Report) Question Answer Date of Assessment Author 1. Wish to be (Past 1 Month) No 06/06/2025 9:04 PM EST Dai Boyce RN 2. Non-Specific Active Suicidal Thoughts (Past 1 Month) No 06/06/2025 9:04 PM EST Dai Boyce RN 6. Suicidal Behavior (Lifetime) No 06/06/2025 9:04 PM EST Dai Boyce RN documented as of this encounter Discharge Instructions * Discharge Instructions* Dari Chen MD - 06/07/2025 12:15 AM EST You were seen in the emergency department for upper abdominal pain. I am pleased that your pain resolved. Your blood work today did show elevations in your liver function test (AST and ALT). I provided you copies of your results from today so you can share them with your PCP. We did discuss imagingwith CT scan but at this time given your reassuring exam, feel the risk of radiation outweighs the b enefit. If your pain returns, you develop fever or vomiting, do not hesitate to return to the emergency department for further evaluation and workup. I would like you to follow-up with your PCP this week to have your liver function rechecked. Avoid Tylenol and alcohol at this time as this can worsen liver function. * Attachments The following attachments cannot be sent through Care Everywhere. * LFTs (Liver Function Tests) (Egyptian) * Abdominal Pain (Egyptian) documented in this encounter Procedure Notes * Dari Chen MD - 06/06/2025 11:28 PM ESTAssociated Order(s): Bedside Ultrasound Procedure Bedside Ultrasound Date/Time: 06/06/2025 11:28 PM Performed by: Dari Chen MD Authorized by: Dari Chen MD Exam Type: Aorta, Renal and Biliary Aorta Exam Findings & Impression: Indications: patient with upper abdominal pain Aorta Diameter (cm): the entire abdominal aorta from the SMA to the distal aorta was visualized as less than 3 cm in diameter Overall Impression: negative Renal Exam Findings & Impression: Indications: patient with abdominal pain Right Kidney: the right kidney was visualized and hydronephrosis was not present Overall Impression: negative Biliary Exam Findings & Impression: Indications: patient with abdominal pain and epigastric pain Gallstones: the gallbladder was visualized and gallstones were not present Gallbladder Wall Thickening: the gallbladder was visualized and the gallbladder wall was not thickened Gallbladder Anterior Wall Thickness (mm): 2 Pericholecystic Fluid Present: the gallbladder was visualized and pericholecystic fluid was not present Sonographic Diaz's: the gallbladder was visualized and a Sonogrphic Diaz's sign was not present Overal Impression: negative Images: Images Saved: Yes Accession Number: [id number] documented in this encounter ED Notes * Lina Hudson RN - 06/07/2025 12:24 AM EST ED Discharge Nursing Note Pt medically cleared and prepared for discharge. Discharge instructions reviewed, pt verbalized understanding. Pt A&O x4, ambulatory with a steady gait. Pt denies any new or worsening medical complaints. Pt has safe ride home. All belongings with patient, all safety maintained. * Dai Boyce RN - 06/06/2025 8:55 PM EST Patient comes in with abdominal pain. Has happened last night and relieved with gas x, tired to take it again tonight with no relief. Describes pain as constricting in her upper abdomen. Denies chestpain. Endorses pain with inspiration. No changes in diet. Denies vomiting and diarrhea. * Dari Chen MD - 06/06/2025 8:53 PM EST Chief Complaint Chief Complaint Patient presents with Abdominal Pain History of Present Illness The patient, Vida Myles,is a 24 y.o. female who presents for evaluation of Abdominal Pain The patient reports for evaluation of upper abdominal pain that has now resolved. Patient reports episode last night around 5 PM after eating dinner. She reports sharp pain across the upper abdomen that resolved after Gas-X. She reports was eating dinner again tonight and had the same pain but it was more severe and lasted longer. She again took Gas-X and on my evaluation she is pain- free. She denies prior abdominal surgeries. She denies fevers, sick contacts, recent antibiotics or recent travel. Unless otherwise specified, I have reviewed and agree with the triage and nursing notes. ROS A ten point review of systems was negative except what was noted in the HPI. Review of Systems Past Medical History No past medical history on file. Past Surgical History No past surgical history on file. Home Medications Prior to Admission medications Not on File Allergies No Known Allergies Social and Family History Social History Tobacco Use Smoking status: Not on file Smokeless tobacco: Not on file Substance Use Topics Alcohol use: Not on file Social History Substance and Sexual Activity Drug Use Not on file No family history on file. Physical Exam Vital Signs: ED Triage Vitals Encounter Vitals Group BP 06/06/25 2100 125/85 Girls Systolic BP Percentile -- Girls Diastolic BP Percentile -- Boys Systolic BP Percentile -- Boys Diastolic BP Percentile -- Heart Rate 06/06/252056 82 Respiratory Rate 06/06/252056 20 Temperature 06/06/252056 36.4 ??C (97.5 ??F) Temp src -- SpO2 06/06/252056 99 % Weight -- Height -- Head Circumference -- Peak Flow -- Pain Score -- Pain Loc -- Pain Education -- Exclude from Growth Chart -- Physical Exam Vitals and nursing note reviewed. Constitutional: General: She is not in acute distress. HENT: Head: Normocephalic and atraumatic. Eyes: Conjunctiva/sclera: Conjunctivae normal. Cardiovascular: Rate and Rhythm: Normal rate and regular rhythm. Pulmonary: Effort: Pulmonary effort is normal. No respiratory distress. Abdominal: General: There is no distension. Tenderness: There is no abdominal tenderness. Musculoskeletal: General: No deformity or signs of injury. Cervical back: Normal range of motion and neck supple. Skin: General: Skin is warm and dry. Findings: No rash. Neurological: General: No focal deficit present. Mental Status: She is alert and oriented to person, place, and time. Psychiatric: Mood and Affect: Mood normal. Behavior: Behavior normal. Laboratory Testing Results for orders placed or performed during the hospital encounter of 06/06/25 CBC and Differential Specimen: Blood Result Value Ref Range WBC 7.52 4.00 - 11.00 K/uL RBC 3.88 (L) 4.00 - 5.20 M/uL Hemoglobin 12.0 12.0 - 16.0 g/dL Hematocrit 34.8 (L) 36.0 - 46.0 % MCV 89.7 80.0 - 100.0 fL MCH 30.9 27.0 - 31.0 pg MCHC 34.5 32.0 - 36.0 g/dL MPV 9.8 8.4 - 12.0 fL RDW-CV 13.3 11.5 - 14.5 % PLT 260 150 - 450 K/uL Neutrophils 40.6 % Lymphocytes 48.1 % Monocytes 6.9 % Eosinophils 3.5 % Basophils 0.8 % Imm Grans 0.1 % NRBC 0.0 <=0.0 /100 WBCs Absolute Neutrophils 3.05 1.92 - 7.60 K/uL Absolute Lymphocytes 3.62 0.72 - 4.10 K/uL Absolute Monocytes 0.52 0.16 - 1.10 K/uL Absolute Eosinophils 0.26 0.00 - 0.50 K/uL Absolute Basophils 0.06 0.00 - 0.15 K/uL Absolute Imm Grans 0.01 0.00 - 0.09 K/uL Absolute NRBC 0.00 <=0.00 K cells/uL Absolute Neutrophils 3.05 1.92 - 7.60 K/uL Diff Type Auto Lipase Specimen: Blood Result Value Ref Range Lipase 107 (H) 13 - 60 U/L Hepatic Panel (LFTs) Specimen: Blood Result Value Ref Range AST 152 (H) <33 U/L ALT 152 (H) <34 U/L Alkaline Phosphatase 71 40 - 130 U/L Bilirubin, Total 0.3 0.0 - 1.2 mg/dL Bilirubin, Direct 0.1 0.0 - 0.3 mg/dL Total Protein 7.3 6.4 - 8.3 g/dL Albumin 5.0 3.5 - 5.2 g/dL Globulin 2.3 1.9 - 4.1 g/dL Human Chorionic Gonadotropin (HCG), Qualitative, Blood Specimen: Blood Result Value Ref Range hCG Qualitative Negative Negative Basic Metabolic Panel (BMP) Specimen: Blood Result Value Ref Range Sodium 139 136 - 145 mmol/L Potassium 3.6 3.4 - 5.1 mmol/L Chloride 103 98 - 107 mmol/L CO2 24 20 - 31 mmol/L BUN 13 6 - 23 mg/dL Creatinine 0.80 0.50 - 1.00 mg/dL Glucose 92 70 - 99 mg/dL Calcium 9.5 8.5 - 10.5 mg/dL eGFR 105 >59 mL/min/1.73m2 Anion Gap 12 3 - 17 mmol/L Radiology Testing Bedside Ultrasound Final Result MDM Assessment and Plan: Patient presents with upper abdominal pain resolved after Gas-X at home. Happened twice over the last 2 days. Afebrile with stable vitals and benign abdominal exam. Patient does have a new transaminitis with AST and ALT 152, no obstructive picture. Bedside ultrasound of the aorta, gallbladder and right kidney did not reveal any concerning pathology. Recent benefits of CT scan discussed with patient, given reassuring exam, no leukocytosis and asymptomatic I feel the radiation risk outweighs the diagnostic benefit at this time. As discussed with the patient and her father at bedside were in agreement. She understands that she needs to get her LFTs rechecked with her PCP within the next week and have a low threshold to return to the emergency department for new or recurrent symptoms. Patientand father expressed understanding and agreement. Stable for discharge Category 1: Tests, Studies or Independent Historians: Independent Historian: Independent history was obtained by family/guardian. Father at bedside. Category 2 and 3: Independent Interpretation of Tests, Consideration of Tests, or External Discussion of Results: Labs: Laboratory studies were interpreted. Radiology: Radiology study was considered but not performed. As above. Clinical Impressions as of 06/07/2539 Epigastric pain Transaminitis Critical Care Time: 0 minutes Clinical Impression Diagnosis Description Comment Final diagnoses Epigastric pain Epigastric pain -- Transaminitis Transaminitis -- Disposition: Home Dari Chen MD 06/07/2539 documented in this encounter Plan of Treatment Scheduled Orders Name Type Priority Associated Diagnoses Orde r Schedule Urinalysis with Reflex to Urine Culture Lab STAT Once for 1 Occur rences starting 06/06/2025 until 06/06/2025 documented as of this encounter Procedures Procedure Name Priority Date/Time Associated Diagnosis Comments US BEDSIDE Routine 06/06/2025 11:28 PM EST HCG, SERUM QUALITATIVE STAT 06/06/2025 9:14 PM EST CBC AND DIFFERENTIAL STAT 06/06/2025 9:14 PM EST LFTS (HEPATIC PANEL) STAT 06/06/2025 9:14 PM EST CBC AND DIFFERENTIAL STAT 06/06/2025 9:14 PM EST LIPASE STAT 06/06/2025 9:14 PM EST BASIC METABOLIC PANEL (BMP) STAT 06/06/2025 9:14 PM EST ECG 12-LEAD STAT 06/06/2025 9:02 PM EST documented in this encounter Results * US BEDSIDE (06/06/2025 11:28 PM EST) Anatomical Region Laterality Modality Ultrasound Narrative 06/06/2025 11:28 PM EST Dari Chen MD 06/07/2025 12:01 AM Bedside Ultrasound Date/Time: 06/06/2025 11:28 PM Performed by: Dari Chen MD Authorized by: Dari Chen MD Exam Type: Aorta, Renal and Biliary Aorta Exam Findings & Impression: Indications: patient with upper abdominal pain Aorta Diameter (cm): the entire abdominal aorta from the SMA to the distal aorta was visualized as less than 3 cm in diameter Overall Impression: negative Renal Exam Findings & Impression: Indications: patient with abdominal pain Right Kidney: the right kidney was visualized and hydronephrosis was not present Overall Impression: negative Biliary Exam Findings & Impression: Indications: patient with abdominal pain and epigastric pain Gallstones: the gallbladder was visualized and gallstones were not present Gallbladder Wall Thickening: the gallbladder was visualized and the gallbladder wall was not thickened Gallbladder Anterior Wall Thickness (mm): 2 Pericholecystic Fluid Present: the gallbladder was visualized and pericholecystic fluid was not present Sonographic Diaz's: the gallbladder was visualized and a Sonogrphic Diaz's sign was not present Overal Impression: negative Images: Images Saved: Yes Accession Number: [id number] Dari Chen MD IMG POINT OF CARE EXAMS Cate l Result * (ABNORMAL) CBC and Differential (06/06/2025 9:14 PM EST) WBC 7.52 4.00 - 11.00 K/uL 06/06/2025 9:30 PM [facility] RBC 3.88(L) 4.00 - 5.20 M/uL 06/06/2025 9:30 PM [facility] Hemoglobin 12.0 12.0 - 16.0 g/dL 06/06/2025 9:30 PM [facility] Hematocrit 34.8(L) 36.0 - 46.0 % 06/06/2025 9:30 PM [facility] MCV 89.7 80.0 - 100.0 fL 06/06/2025 9:30 PM [facility] MCH 30.9 27.0 - 31.0 pg 06/06/2025 9:30 PM [facility] MCHC 34.5 32.0 - 36.0 g/dL 06/06/2025 9:30 PM [facility] MPV 9.8 8.4 - 12.0 fL 06/06/2025 9:30 PM [facility] RDW-CV 13.3 11.5 - 14.5 % 06/06/2025 9:30 PM [facility] PLT 260 150 - 450 K/uL 06/06/2025 9:30 PM [facility] Neutrophils 40.6 % 06/06/2025 9:30 PM [facility] Lymphocytes 48.1 % 06/06/2025 9:30 PM [facility] Monocytes 6.9 % 06/06/2025 9:30 PM [facility] Eosinophils 3.5 % 06/06/2025 9:30 PM [facility] Basophils 0.8 % 06/06/2025 9:30 PM [facility] Imm Grans 0.1 % 06/06/2025 9:30 PM [facility] NRBC 0.0 <=0.0 /100 WBCs 06/06/2025 9:30 PM [facility] Absolute Neutrophils 3.05 1.92 - 7.60 K/uL 06/06/2025 9:30 PM [facility] Absolute Lymphocytes 3.62 0.72 - 4.10 K/uL 06/06/2025 9:30 PM [facility] Absolute Monocytes 0.52 0.16 - 1.10 K/uL 06/06/2025 9:30 PM [facility] Absolute Eosinophils 0.26 0.00 - 0.50 K/uL 06/06/2025 9:30 PM [facility] Absolute Basophils 0.06 0.00 - 0.15 K/uL 06/06/2025 9:30 PM [facility] Absolute Imm Grans 0.01 0.00 - 0.09 K/uL 06/06/2025 9:30 PM [facility] Absolute NRBC 0.00 <=0.00 K cells/uL 06/06/2025 9:30 PM [facility] Absolute Neutrophils 3.05 1.92 - 7.60 K/uL 06/06/2025 9:30 PM [facility] Comment:Automated cell count . Manual ANC may differ if performed. Diff Type Auto 06/06/2025 9:30 PM [facility] Blood (Blood) Venipuncture / Unknown 06/06/2025 9:14 PM EST 06/06/2025 9:28 PM EST us Kyle Ohara MD LAB BLOOD BKR ORDERABLES Final Result Performing Organization Address [facility]/ZIP Co de Phone Number [address] [address] * (ABNORMAL) Lipase (06/06/2025 9:14 PM EST) Lipase 107(H) 13 - 60 U/L 06/06/2025 9:52 PM [facility] Blood (Blood) Venipuncture / Unknown 06/06/2025 9:14 PM EST 06/06/2025 9:28 PM EST us Kyle Ohara MD LAB BLOOD BKR ORDERABLES Final Result Performing Organization Address City/[facility]/ZIP Co de Phone Number [address] [phone] * (ABNORMAL) Hepatic Panel (LFTs) (06/06/2025 9:14 PM EST) AST 152(H) <33 U/L 06/06/2025 9:52 PM [facility] ALT 152(H) <34 U/L 06/06/2025 9:52 PM [facility] Alkaline Phosphatase 71 40 - 130 U/L 06/06/2025 9:52 PM [facility] Bilirubin, Total 0.3 0.0 - 1.2 mg/dL 06/06/2025 9:52 PM [facility] Bilirubin, Direct 0.1 0.0 - 0.3 mg/dL 06/06/2025 9:52 PM [facility] Total Protein 7.3 6.4 - 8.3 g/dL 06/06/2025 9:52 PM [facility] Albumin 5.0 3.5 - 5.2 g/dL 06/06/2025 9:52 PM [facility] Globulin 2.3 1.9 - 4.1 g/dL 06/06/2025 9:52 PM [facility] Blood (Blood) Venipuncture / Unknown 06/06/2025 9:14 PM EST 06/06/2025 9:28 PM EST us Kyle Ohara MD LAB BLOOD BKR ORDERABLES Final Result Performing Organization Address [facility]/ZIP Co de Phone Number [address] [phone] * Human Chorionic Gonadotropin (HCG), Qualitative, Blood (06/06/2025 9:14 PM EST) Pathologist [facility] [place] hCG Qualitative Negative Negative 9:45 PM [facility] Blood (Blood) Venipuncture / Unknown 06/06/2025 9:14 PM EST 06/06/2025 9:28 PM EST us Kyle Ohara MD LAB BLOOD BKR ORDERABLES Final Result [address] [address] * Basic Metabolic Panel (BMP) (06/06/2025 9:14 PM EST) Pathologist [facility] [place] Sodium 139 136 - 145 mmol/L 06/06/2025 9:52 PM [facility] Potassium 3.6 3.4 - 5.1 mmol/L 06/06/2025 9:52 PM [facility] Chloride 103 98 - 107 mmol/L 06/06/2025 9:52 PM [facility] CO2 24 20 - 31 mmol/L 06/06/2025 9:52 PM [facility] BUN 13 6 - 23 mg/dL 06/06/2025 9:52 PM [facility] Creatinine 0.80 0.50 - 1.00 mg/dL 06/06/2025 9:52 PM [facility] Glucose 92 70 - 99 mg/dL 06/06/2025 9:52 PM [facility] Calcium 9.5 8.5 - 10.5 mg/dL 06/06/2025 9:52 PM [facility] eGFR 105 >59 mL/min/1.7 3m2 06/06/2025 9:52 PM [facility] Comment:Estimated glomerular filtration rate calculated using the CKD-EPI refit equation. Anion Gap 12 3 - 17 mmol/L 06/06/2025 9:52 PM [facility] Blood (Blood) Venipuncture / Unknown 06/06/2025 9:14 PM EST 06/06/2025 9:28 PM EST us Kyle Ohara MD LAB BLOOD BKR ORDERABLES Final Result [address] [address] * ECG 12-LEAD (06/06/2025 9:02 PM EST) Ventricular Rate EKG/MIN 77 BPM [facility] Atrial Rate 77 BPM [facility] AK Interval 120 ms [facility] QRS Duration 72 ms [facility] QT Interval 374 ms [facility] QTC Interval 423 ms [facility] P [place] 7 degrees [facility] R Wave [place] 26 degrees [facility] T Wave [place] 36 degrees [facility] 06/06/2025 9:02 PM EST 06/07/2025 3:21 PM EST Narrative [facility] - 06/07/2025 3:21 PM EST Normal sinus rhythm Normal ECG No previous ECGs available Confirmed by Kenji Palomo ([id number]) on 06/07/2025 3:21:45 PM us Franklin Grijalva PA-C ECG ORDERABLES Final Result [facility] documented in this encounter Visit Diagnoses Diagnosis Epigastric pain- Primary Abdominal pain, epigastric Transaminitis Nonspecific elevation of levels of transaminase or lactic acid dehydrogenase (LDH) documented in this encounter Administered Medications Inactive Administered Medications - up to 3 most recent administrations Medication Order MAR Action Action Date Dose Rate Site sodium chloride (NS) 0.9 % syringe flush 3 mL 3 mL, Intravenous, As needed, line care, Starting on 06/06/25 at 2104, Per Institutional IV Line Care Policy. documented in this encounter Active and Recently Administered Medications Times are shown in EST. PRN Medication Order 06/05/2025 06/06/2025 06/07/2025 sodium chloride (NS) 0.9 % syringe flush 3 mL 3 mL, Intravenous, As needed, line care, Starting on 06/06/25 at 2104, Per Institutional IV Line Care Policy. documented in this encounter Care Teams Saw Operator Relationship Specialty Start Date End Date Roxana Gonzalez MD [address] [place] [id number] PCP - General Internal Medicine 06/06/25 documented as of this encounter Additional Source Comments The information contained in this document represents components of the legal health record. It is not the complete legal health record.[facility]
--- OUTSIDE RECORDS SUMMARY | 2025-06-06 23:30 | XMS_ITS | Encounter Summary ---
Author Organization [facility] Address [address] [place] [phone] Phone Care Team Providers Care [employer] Teacher Name Role Phone Roxana Gonzalez MD Primary Care Provider [phone] Encounter Details Date Type Department Care Team (Late st Contact Info) Description 06/06/2025 11:30 PM EST Ancillary Procedure [address] [address] Dari Chen MD [address] [place] [id number] [email or web address] Arrived Social History Tobacco Use Types Packs/Day Years [...] on file documented as of this encounter Functional Status * Calculated C-SSRS Risk Score (Lifetime/Recent) Answer Date of Assessment Author No Risk Indicated 06/06/2025 9:04 PM Dai Stallings RN * [place] Suicide Severity Rating Scale (Screener/Recent Self-Report) Question Answer Date of Assessment Author 1. Wish to be (Past 1 Month) No 06/06/2025 9:04 PM Dai Jones RN 2. Non-Specific Active Suicidal Thoughts (Past 1 Month) No 06/06/2025 9:04 PM Dai Jones RN 6. Suicidal Behavior (Lifetime) No 06/06/2025 9:04 PM Dai Jones RN documented as of this encounter Plan of Treatment Not on file documented as of this encounter Procedures Procedure Name Priority Date/Time Associated Diagnosis Comments US BEDSIDE Routine 06/06/2025 11:28 PM EST documented in this encounter Results [...] negative Images: Images Saved: Yes Accession Number: [id number] us Dari Chen MD IMG POINT OF CARE EXAMS Cate l Result documented in this encounter Visit Diagnoses Not on filedocumented in this encounter Care Teams [employer] [facility] Teacher Relationship Specialty Start Date End Date Roxana Gonzalez MD [address] [place] [address] PCP - General Internal Medicine 06/06/25 documented as of this encounter Additional Source Comments The information contained in this document represents components of the legal health record. It is not the complete legal health record.[facility]
[2025-06-09 12:02] VITALS: BP 104/76; PULSE 93; RESP 17; TEMP 36.7; O2SAT 99; BMI 26.2
--- NOTE | 2025-06-09 12:02 | A.OFFPC_ITS ---
Vital Signs 06/09/25 12:02 Height 5 ft 7 in Weight 167 lb BMI 26.2 BP 104/76 Blood Pressure Location Lt brachial Position Sitting Respiration 17 Pulse 93 Pulse Source Pulse Oximeter Temp 98.1 F Temp Source Oral Pulse Oximetry (%) 99 Oxygen Delivery Method Room Air Intake Visit Reasons: ER follow up Intake Note: Pt is here today for ER follow up visit. Allergies No Known Allergies Allergy (Unverified 06/09/25 12:06) Medication List - Last Reconciled 06/09/25 by Roxana Gonzalez MD No Known Home Meds Tobacco use date assessed: 06/09/25 Dental Screening Dental Screen Date: 10/15/24 HPI ER follow up HPI Details Pt presents for the follow-up of ER visit for 2 days of epigastric abd pain started after eating 2 slices of pizza last week. Patient describes pain as crampy sharp but denies nausea vomiting change in bowel habits fever chills back pain dysuria fever chills. Patient was seen in the ER had negative abdominal ultrasound liver function tests were borderline elevated. Patient denies any recent travel abroad or eating raw or undercooked meat or seafood. Patient denies any recurrent pain for the last 4 days. She has been eating well-balanced diet. 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 Housing: House Patient Tobacco Use Status: Never used Tobacco e-Cigarette/Vaping Use: Never Used service: No Current occupational status: employed Cognitive needs: No Hearing needs: No Vision needs: Yes Questionnaire Thrive Questionnaire Date Thrive assessed: 10/15/24 I am a: Patient What is your living situation today?: I have a steady place to live Within the past 12 months, did the food you bought not last and you didn't have the money to get more?: Never true Within the past 12 months, did you worry whether your food would run out before you got money to buy more?: Never true Do you have trouble paying for medicines?: No Do you have trouble getting transportation to medical appointments?: No Do you have trouble paying your heating and electricity bill?: No Do you have trouble taking care of your child, family member or friend?: No Do you have trouble with day-to-day activities such as bathing, preparing meals, shopping, managing finances, etc.?: No Are you currently unemployed and looking for a job?: No Are you interested in more education?: Yes Please select the resources that you would like help with: None Currently or been in a relationship where the following occur: No concerns reported THRIVE Score: 0 AUDIT C Alcohol Use Questionnaire (AUDIT-C) 2. How many drinks containing alcohol do you have on a typical day when you are drinking?: 1 or 2 3. How often do you have six or more drinks on one occasion?: Never Total Score: 0 DOC-7 AMB Questionnaire DOC-7 Date DOC - 7 assessed: 10/15/24 Source: Developed by Drs. Mor Whyte, Marci Turner, Mati Jones and colleagues, with an educational elodia from [employer]. Review of Systems Const All systems reviewed & are unremarkable except as noted in HPI and below Eyes Reports no additional complaints ENT Reports no additional complaints Card Reports no additional complaints Resp Reports no additional complaints GI Reports no additional complaints Reports no additional complaints Physical exam (Primary Care) Vital Signs: Last Vital Signs Temp 98.1 F 06/09/25 12:02 Pulse 93 06/09/25 12:02 Resp 17 06/09/25 12:02 BP 104/76 06/09/25 12:02 Pulse Ox 99 06/09/25 12:02 Oxygen Delivery Method Room Air 06/09/25 12:02 BMI result Body Mass Index 26.2 Tobacco/Smoking Status: Tobacco use Status Tobacco use date assessed 06/09/25 06/09/25 12:07 Patient Tobacco Use Status Never used Tobacco 06/09/25 12:07 e-Cigarette/Vaping Use Never Used 06/09/25 12:07 Thrive Assessment: Date of Thrive Assessment Date Thrive assessed 10/15/24 06/09/25 12:07 Currently or been in a relationship where the following occur: No concerns reported Const General: no acute distress [facility] Head: Yes normal to inspection Face and sinus: Yes normal facial exam Eyes General: appearance normal, both eyes and all related structures Resp Effort & Inspection: normal respiratory effort Auscultation: clear to auscultation bilaterally Cardio Rhythm: regular rhythm Heart sounds: S1 normal heart sound present and S2 normal heart sound present GI Inspection: Yes normal to inspection Palpation (GI): Soft to palpation Percussion: Yes normal to percussion Auscultation: normal bowel sounds Coding Level of Care Code Est Pt Level 4 (31334) Diagnoses Abdominal pain R10.9 Elevated LFTs R79.89 Assessment & Plan Assessment & Plan (1) Abdominal pain: Comment: Negative abdominal ultrasound 05/2025 Code(s): R10.9 - Unspecified abdominal pain Category: Medical Plan: Obtain stool studies for H pylori (2) Elevated LFTs: Code(s): R79.89 - Other specified abnormal findings of blood chemistry Category: Medical Plan: Repeat LFTs check hepatitis panel Orders: Orders Comprehensive [place]. Panel Fast Today R10.9 - Unspecified abdominal pain Vitamin D 25-OH Total Today R10.9 - Unspecified abdominal pain Monotest Today R10.9 - Unspecified abdominal pain Hepatitis A,B,C Profile Today R10.9 - Unspecified abdominal pain H pylori Ag Stool Today R10.9 - Unspecified abdominal pain UA w Microscopic Today R10.9 - Unspecified abdominal pain IRON PROFILE Today R10.9 - Unspecified abdominal pain Vitamin B12 and Folate Today R10.9 - Unspecified abdominal pain Complete Blood Count Auto Diff Today R10.9 - Unspecified abdominal pain TSH reflex Free T4 Today R10.9 - Unspecified abdominal pain
--- OUTSIDE RECORDS SUMMARY | 2025-06-09 15:54 | XMS_ITS | Encounter Summary ---
Author Organization [facility] Address [address] [place] [address] Phone Care Team Providers Care Cylinder Dyer Name Role Phone Tabitha Cook MD Primary Care Provider [phone] Encounter Details Date Type Department Care Team (Late st Contact Info) Description 10/22/2016 Documentation [facility] [place] [address] [place], [place] [id number] Family Medicine, Physician [facility] [place] [address] Social History Tobacco Use Types Packs/Day Years [...] on filedocumented in this encounter Care Teams Cylinder Dyer Relationship Specialty Start Date End Date Tabitha Cook MD PCP - General Pediatrics 01/17/21 10/03/22 documented as of this encounter
--- OUTSIDE RECORDS SUMMARY | 2025-06-09 15:54 | XMS_ITS | Encounter Summary ---
Author Organization [facility] Address [address] [place] [address] Phone Care Team Providers Care Compliance Assistant Name Role Phone Tabitha Cook MD Primary Care Provider [phone] Encounter Details Date Type Department Care Team (Late st Contact Info) Description 02/07/2017 Conversion Encounter [facility] - [address] [address] Social History Tobacco Use Types Packs/Day Years [...] on filedocumented in this encounter Care Teams Compliance Assistant Relationship Specialty Start Date End Date Tabitha Cook MD PCP - General Pediatrics 01/17/21 10/03/22 documented as of this encounter
--- OUTSIDE RECORDS SUMMARY | 2025-06-09 15:55 | XMS_ITS | Clinical Summary ---
Author Organization [address] [facility] Address [address] [place] [id number] Phone Care Team Providers Care Brake Operator Heavy Duty Name Role Phone Physician, No Pcp Primary Care Provider Unavaila ble Allergies No known active allergies Medications magnesium gluconate (MAG-G) 27 mg magnesium (500 mg) tablet Take 500 mg by mouth. Active multivitamin tablet Take 1 tablet by mouth 1 (one) time each day. Active omega-3 fatty acids-fish oil 340-1,000 mg capsule Take 1,000 mg by mouth. Active Surgical History Surgery Date Site/Laterality Comments ANTERIOR [...] 03/03/2022 03/03/2012, 11/29/2004, 05/27/2002, Additional history exists HIV Screening 07/19/2023 Hepatitis C Screening 07/19/2023 Social Influencers of Health Screening 07/19/2023 Depression Screening 06/24/2024 COVID-19 Vaccine ( season) 2025 07/11/2021, 08/09/2020, 07/22/2020 Influenza Vaccine (#1) 2025 , 05/20/2019, 02/27/2018, Additional history exists Gonorrhea/Chlamydia Screening 07/31/2025 07/31/2024 Cervical Cancer Screening: Pap Smear 07/31/2027 07/31/2024 RSV Immunization Adult Patients (1 - 1-dose 75+ series) 11/07/2075 Pneumococcal Vaccine: Pediatrics (0 to 5 Years) and At-Risk Patients (6 to 49 Years) Aged Out 05/19/2001, 03/14/2001, 01/08/2001 No [...] A Vaccines Completed 04/12/2014, 12/15/19 11 Meningococcal ACWY Vaccine Completed 09/02/2017, Meningococcal B Vaccine Completed 05/20/2019, 10/10 RSV Immunization Patients Under 20 months Aged Out No longer eligible based on patient's age to complete this topic Procedures Procedure Name Priority Date/Time Associated Diagnosis Comments PAP SMEAR Routine 07/31/2024 3:01 PM EST Encounter for gynecological examination without abnormal finding CHLAMYDIA TRACHOMATIS AND NEISSERIA GONORRHOEAE BY TMA, THINPREP Routine 07/31/2024 3:01 PM EST Encounter for gynecological examination without abnormal finding from Last 3 Months or Most Recently Relevant to Health Maintenance Results * Chlamydia trachomatis and neisseria gonorrhoeae by tma, thinprep (07/31/2024 3:01 PM EST) N. gonorrhoeae, RNA Probe Negative Negative LAB MICROBIOLOGY METHOD 08/04/2024 1:11 PM EST [facility] Chlamydia, RNA Probe Negative Negative LAB MICROBIOLOGY METHOD 08/04/2024 1:11 PM EST [facility] Brushing/Spatula Cervix uteri structure / Unknown 07/31/2024 3:01 PM EST 08/04/2024 6:40 AM EST Debra MUELLER LAB CYTOLOGY ORDERABLES Final Result Performing Organization Address City/State/[facility] [[email or web address]] Co de Phone Number [facility] [address] [place] [address], * Pap smear (07/31/2024 3:01 PM EST) Interpretation Negative for intraepithelial lesion or malignancy 08/06/2024 10:00 AM EST [facility] at 1000 EST General Categorization Negative 08/06/2024 10:00 AM EST [facility] LMP 07/08/2024 08/06/2024 10:00 AM EST [facility] Specimen Adequacy Satisfactory for evaluation, endocervical/[place] sformation zone component present 08/06/2024 10:00 AM EST [facility] Pap Methodology Liquid Based Pap Test 08/06/2024 10:00 AM EST [facility] Disclaimer The Pap test is a screening test which carries an inherent false negative rate. These test results should be correlated with the patient's clinical findings and history. This Pap test was processed using an automated screening system. Technical cytopathology services provided by [facility], at [address] [place] [address] (CLIA # [id number]/Albertina Martin MD, Fight Manager.) 08/06/2024 10:00 AM [facility] Console Pap Interpretation Reported 08/06/2024 10:00 AM [facility] Brushing/Spatula Cervix uteri structure / Unknown 07/31/2024 3:01 PM EST 07/31/2024 3:01 PM EST Debra MUELLER LAB CYTOLOGY ORDERABLES Final Result [facility]) [facility] [address] [place] [address], from Last 3 Months or Most Recently Relevant to Health Maintenance Insurance [facility] Care Teams Brake Operator Heavy Duty Relationship Specialty Start Date End Date Physician, No Pcp PCP - General 05/07/24
--- OUTSIDE RECORDS SUMMARY | 2025-06-09 15:55 | XMS_ITS | Clinical Summary ---
Author Organization [facility] Address [address] [place] [phone] Phone Care Team Providers Care Food Handler Name Role Phone Unavailable Primary Care Provider Unavailabl e Allergies No known active allergies Medications ciclopirox 0.77 % cream APPLY TOPICALLY TO FEET TWICE DAILY. REPEAT NEEDED 1 Active Active Problems Problem Noted Date Diagnosed Date New ACL tear, right, initial encounter 2 Overview (01/06/2022): 09/2021, S/p post surgical repair 11/[address] Bailey at [facility] Assessment & Plan (01/06/2022 11:17 AM EDT): Pt compliant with post-operative bracing and care. Followed by [facility]. Sports PE form completed today [...] 93 01/04/2022 10:13 AM EDT Temperature 36.1 C (97 F) 06/20/2021 9:23 AM EST Respiratory Rate - [...] 05/27/2002, Additional history exists Influenza Vaccines (#1) 2025 05/16/20, 05/20/2019, 02/27/2018, Additional history exists COVID-19 Vaccine ( season) 2025 07/11/2021, 08/09/2020, 07/22/2020 Pneumococcal Vaccine Aged Out [...] Men B Vaccine Completed 05/20/2019, 10/10/2018 Insurance [facility] [employer]
--- OUTSIDE RECORDS SUMMARY | 2025-06-09 15:55 | XMS_ITS | Encounter Summary ---
Author Organization [facility] Address [address] [place] [phone] Phone Care Team Providers Care Custodial Supervisor Name Role Phone Pcp, Unknown Primary Care Provider Roxana oMntano MD Primary Care Provider [phone] Reason for Referral * Physical Therapy (Routine) - Closed Specialty Diagnoses / Procedures Referred By Contac t Referred To Contact Physical Therapy Diagnoses Encounter for rehabilitation Right ACL Procedures evaluate & treat Edison Bailey MD Phone: tel: fax: [address] [address] Phone: tel: Referral ID Status Reason Start Date Expiration Date Visits Re quested Visits Authorized [id number] Closed 12/05/2021 12/05/2022 20 20 Encounter Details Date Type Department Care Team (Latest Contact Info) Description 12/05/2021 Transcribe Orders [facility] [address] [place] [phone] Edison Bailey MD [address] [place] [id number] Encounter for rehabilitation (Primary Dx) Social History Tobacco Use Types Packs/Day Years Used Date Smoking Tobacco: Never Assessed Comments Unknown Sex and Gender Information Value Date Recorded Sex Assigned at Not on file Legal Sex Female 9:46 AM EDT Gender Identity Not on file Sexual Orientation Not on file documented as of this encounter Plan of Treatment Scheduled Referrals Name Type Priority Associated Diagnoses Orde r Schedule Ambulatory referral to [facility] Physical Therapy Outpatient Referral Routine Encounter for rehabilitation Ordered: 12/05/2021 documented as of this encounter Visit Diagnoses Diagnosis Encounter for rehabilitation- Primary documented in this encounter Care Teams Custodial Supervisor Relationship Specialty Start Date End Date Pcp, Unknown PCP - General 12/05/21 06/05/25 Roxana Gonzalez MD [address] [place] [address] PCP - General Internal Medicine 06/06/25 documented as of this encounter Additional Source Comments The information contained in this document represents components of the legal health record. It is not the complete legal health record.[facility]
--- OUTSIDE RECORDS SUMMARY | 2025-06-09 15:55 | XMS_ITS | Encounter Summary ---
Author Organization [facility] Address [address] [place] [address] Phone Care Team Providers Care Courtesy Van Driver Name Role Phone Tabitha Cook MD Primary Care Provider [phone] Encounter Details Date Type Department Care Team (Late st Contact Info) Description 10/22/2013 Documentation [facility] [place] [address] [place], [place] [phone] Family Medicine, Physician [facility] [place] [address] Social History Tobacco Use Types Packs/Day Years [...] on filedocumented in this encounter Care Teams Courtesy Van Driver Relationship Specialty Start Date End Date Tabitha Cook MD PCP - General Pediatrics 01/17/21 10/03/22 documented as of this encounter
--- OUTSIDE RECORDS SUMMARY | 2025-06-09 15:55 | XMS_ITS | Clinical Summary ---
Author Organization [facility] Address [address] [place] [address] Phone Care Team Providers Care Professor Of Special Education Name Role Phone Roxana Gonzalez MD Primary Care Provider [phone] Allergies No known active allergies Medications No known medications Active Problems No known active problems Encounters Date Type Department Care Team Description 06/06/2025 11:30 PM EST Ancillary Procedure [facility], [address] [address] Dari Chen MD Arrived 06/06/2025 11:17 PM EST - 06/07/2025 12:24 AM EST Emergency [facility] [address] [place] [address] Dari Chen MD Discharge Disposition: Home or Self Care from Last 3 Months Social History Tobacco Use Types Packs/Day Years [...] on file Sexual Orientation Not on file Last Filed Vital Signs Vital Sign Reading [...] Mass Index 25.84 06/07/2025 12:22 AM EST Plan of Treatment Health Maintenance Due Date Last Done Comments DEPRESSION SCREENING 2012 SMOKING Hx and SMOKELESS TOB ACCO SCREENING 2013 HPV VACCINES (1 - 3-dose series) 11/07/2015 CHLAMYDIA SCREENING 2016 HEPATITIS C SCREENING 2018 HIV ONE-TIME SCREENING (18-6 5 YEARS) 2018 PAP SMEAR 2021 Adult Td,Tdap Booster 03/03/2022 03/03/2012 INFLUENZA VACCINE (#1) 2025 COVID-19 VACCINE ( - 2024-2 6 season) 2025 HEPATITIS A VACCINES Aged Out No long er eligible based on patient's age to complete this topic HIB VACCINES Aged Out No longer eligi ble based on patient's age to complete this topic MENINGOCOCCAL VACCINES (ACWY) Aged Out No longer eligible based on patient's age to complete this topic MENINGOCOCCAL VACCINES (B) Aged Out N o longer eligible based on patient's age to complete this topic PNEUMOCOCCAL VACCINES (0-49 years) Aged Out No longer eligible based on patient's age to complete this topic Medical Devices Not on file Procedures Procedure Name Priority Date/Time Associated Diagnosis Comments US BEDSIDE Routine 06/06/2025 11:28 PM EST CBC AND DIFFERENTIAL STAT 06/06/2025 9:14 PM EST LIPASE STAT 06/06/2025 9:14 PM EST LFTS (HEPATIC PANEL) STAT 06/06/2025 9:14 PM EST HCG, SERUM QUALITATIVE STAT 06/06/2025 9:14 PM EST BASIC METABOLIC PANEL (BMP) STAT 06/06/2025 9:14 PM EST CBC AND DIFFERENTIAL STAT 06/06/2025 9:14 PM EST ECG 12-LEAD STAT 06/06/2025 9:02 PM EST from Last 3 Months Results * US BEDSIDE (06/06/2025 11:28 PM [...] negative Images: Images Saved: Yes Accession Number: [id number] us Dari Chen MD IMG POINT OF CARE EXAMS Cate l Result * Human Chorionic Gonadotropin (HCG), Qualitative, Blood (06/06/2025 9:14 PM EST) Pathologist [facility] hCG Qualitative Negative Negative 9:45 PM [facility] Blood (Blood) Venipuncture / Unknown 06/06/2025 9:14 PM EST 06/06/2025 9:28 PM EST us Kyle Ohara MD LAB BLOOD BKR ORDERABLES Final Result Performing Organization Address City/State/[facility] Co de Phone Number [address] [address] * (ABNORMAL) CBC and Differential (06/06/2025 9:14 PM EST) Pathologist [facility] WBC 7.52 4.00 - 11.00 K/uL 06/06/2025 9:30 PM [facility] RBC 3.88(L) 4.00 - 5.20 M/uL 06/06/2025 9:30 PM [facility] Hemoglobin 12.0 12.0 - 16.0 g/dL 06/06/2025 9:30 PM [facility] Hematocrit 34.8(L) 36.0 - 46.0 % 06/06/2025 9:30 PM [facility] MCV 89.7 80.0 - 100.0 fL 06/06/2025 9:30 PM [facility] MCH 30.9 27.0 - 31.0 pg 06/06/2025 9:30 PM [facility] MCHC 34.5 32.0 - 36.0 g/dL 06/06/2025 9:30 PM [facility] MPV 9.8 8.4 - 12.0 fL 06/06/2025 9:30 PM [facility] RDW-CV 13.3 11.5 - 14.5 % 06/06/2025 9:30 PM [facility] PLT 260 150 - 450 K/uL 06/06/2025 9:30 PM [facility] Neutrophils 40.6 % 06/06/2025 9:30 PM [facility] Lymphocytes 48.1 % 06/06/2025 9:30 PM [facility] Monocytes 6.9 % 06/06/2025 9:30 PM [facility] Eosinophils 3.5 % 06/06/2025 9:30 PM [facility] Basophils 0.8 % 06/06/2025 9:30 PM [facility] Imm Grans 0.1 % 06/06/2025 9:30 PM [facility] NRBC 0.0 <=0.0 /100 WBCs 06/06/2025 9:30 PM [facility] Absolute Neutrophils 3.05 1.92 - 7.60 K/uL 06/06/2025 9:30 PM [facility] Absolute Lymphocytes 3.62 0.72 - 4.10 K/uL 06/06/2025 9:30 PM [facility] Absolute Monocytes 0.52 0.16 - 1.10 K/uL 06/06/2025 9:30 PM [facility] Absolute Eosinophils 0.26 0.00 - 0.50 K/uL 06/06/2025 9:30 PM [facility] Absolute Basophils 0.06 0.00 - 0.15 K/uL 06/06/2025 9:30 PM [facility] Absolute Imm Grans 0.01 0.00 - 0.09 K/uL 06/06/2025 9:30 PM [facility] Absolute NRBC 0.00 <=0.00 K cells/uL 06/06/2025 9:30 PM [facility] Absolute Neutrophils 3.05 1.92 - 7.60 K/uL 06/06/2025 9:30 PM [facility] Comment:Automated cell count . Manual ANC may differ if performed. Diff Type Auto 06/06/2025 9:30 PM [facility] Blood (Blood) Venipuncture / Unknown 06/06/2025 9:14 PM EST 06/06/2025 9:28 PM EST Kyle Ohara MD LAB BLOOD BKR ORDERABLES Final Result [address] [address] * (ABNORMAL) Hepatic Panel (LFTs) (06/06/2025 9:14 PM EST) AST 152(H) <33 U/L 06/06/2025 9:52 PM EST [facility] ALT 152(H) <34 U/L 06/06/2025 9:52 PM [facility] Alkaline Phosphatase 71 40 - 130 U/L 06/06/2025 9:52 PM [facility] Bilirubin, Total 0.3 0.0 - 1.2 mg/dL 06/06/2025 9:52 PM [facility] Bilirubin, Direct 0.1 0.0 - 0.3 mg/dL 06/06/2025 9:52 PM [facility] Total Protein 7.3 6.4 - 8.3 g/dL 06/06/2025 9:52 PM [facility] Albumin 5.0 3.5 - 5.2 g/dL 06/06/2025 9:52 PM [facility] Globulin 2.3 1.9 - 4.1 g/dL 06/06/2025 9:52 PM [facility] Blood (Blood) Venipuncture / Unknown 06/06/2025 9:14 PM EST 06/06/2025 9:28 PM EST Kyle Ohara MD LAB BLOOD BKR ORDERABLES Final Result [address] [address] * (ABNORMAL) Lipase (06/06/2025 9:14 PM EST) Lipase 107(H) 13 - 60 U/L 06/06/2025 9:52 PM [facility] Blood (Blood) Venipuncture / Unknown 06/06/2025 9:14 PM EST 06/06/2025 9:28 PM EST Kyel Ohara MD LAB BLOOD BKR ORDERABLES Final Result [address] [address] * Basic Metabolic Panel (BMP) (06/06/2025 9:14 PM EST) Sodium 139 136 - 145 mmol/L 06/06/2025 9:52 PM [facility] Potassium 3.6 3.4 - 5.1 mmol/L 06/06/2025 9:52 PM [facility] Chloride 103 98 - 107 mmol/L 06/06/2025 9:52 PM [facility] CO2 24 20 - 31 mmol/L 06/06/2025 9:52 PM [facility] BUN 13 6 - 23 mg/dL 06/06/2025 9:52 PM [facility] Creatinine 0.80 0.50 - 1.00 mg/dL 06/06/2025 9:52 PM [facility] Glucose 92 70 - 99 mg/dL 06/06/2025 9:52 PM [facility] Calcium 9.5 8.5 - 10.5 mg/dL 06/06/2025 9:52 PM [facility] eGFR 105 >59 mL/min/1.7 3m2 06/06/2025 9:52 PM [facility] Comment:Estimated glomerular filtration rate calculated using the CKD-EPI refit equation. Anion Gap 12 3 - 17 mmol/L 06/06/2025 9:52 PM [facility] Blood (Blood) Venipuncture / Unknown 06/06/2025 9:14 PM EST 06/06/2025 9:28 PM EST Kyle Ohara MD LAB BLOOD BKR ORDERABLES Final Result Performing Organization Address City/[facility]/ZIP Co de Phone Number [address] [address] * ECG 12-LEAD (06/06/2025 9:02 PM EST) Ventricular Rate EKG/MIN 77 BPM [facility] Atrial Rate 77 BPM [facility] KS Interval 120 ms [facility] QRS Duration 72 ms [facility] QT Interval 374 ms [facility] QTC Interval 423 ms [facility] P [place] 7 degrees [facility] R Wave [place] 26 degrees [facility] T Wave [place] 36 degrees [facility] 06/06/2025 9:02 PM EST 06/07/2025 3:21 PM EST Narrative [facility] - 06/07/2025 3:21 PM EST Normal sinus rhythm Normal ECG No previous ECGs available Confirmed by Kenji Palomo ([id number]) on 06/07/2025 3:21:45 PM Franklin Grijalva PA-C ECG ORDERABLES Final Result [facility] from Last [address] [facility] Care Teams Professor Of Special Education Relationship Specialty Start Date End Date Roxana Gonzalez MD [address] [place] [address] PCP - General Internal Medicine 06/06/25 Additional Source Comments The information contained in this document represents components of the legal health record. It is not the complete legal health record.[facility]
--- OUTSIDE RECORDS SUMMARY | 2025-06-09 15:55 | XMS_ITS | Encounter Summary ---
Author Organization [facility] Address [address] [place] [address] Phone Care Team Providers Care Grip Wrapper Name Role Phone Tabitha Cook MD Primary Care Provider [phone] Encounter Details Date Type Department Care Team (Late st Contact Info) Description 08/19/2010 Documentation [facility] [place] [address] [place], [place] [phone] Family Medicine, Physician [place] [address] Social History Tobacco Use Types Packs/Day Years [...] on filedocumented in this encounter Care Teams Grip Wrapper Relationship Specialty Start Date End Date Tabitha Cook MD PCP - General Pediatrics 01/17/21 10/03/22 documented as of this encounter
--- OUTSIDE RECORDS SUMMARY | 2025-06-09 15:55 | XMS_ITS | Encounter Summary ---
Author Organization [facility] Address [address] [place] [address] Phone Care Team Providers Care Icu Clerk Name Role Phone Tabitha Cook MD Primary Care Provider [phone] Encounter Details Date Type Department Care Team (Late st Contact Info) Description 08/30/2016 Documentation [facility] [place] [address] [place], [place] [phone] Family Medicine, Physician [facility] [place] [address] Social History Tobacco Use Types Packs/Day Years [...] on filedocumented in this encounter Care Teams Icu Clerk Relationship Specialty Start Date End Date Tabitha Cook MD PCP - General Pediatrics 01/17/21 10/03/22 documented as of this encounter
--- OUTSIDE RECORDS SUMMARY | 2025-06-09 15:55 | XMS_ITS | Clinical Summary ---
Author Organization [facility] Address [address] [place] [address] Care Team Providers Care Sagger Preparer Name Role Phone No, Pcp Primary Care [...] (10/28/2021): Added automatically from request for surgery [id number] Acute pain of right knee 07/12/2021 Family [...] 03/03/2022 03/03/2012, 11/29/2004, 05/27/2002, Additional history exists Alcohol/Substance Use Screening 06/24/2024 Depression Screening and Follow-Up 06/24/2024 Social Drivers of Health Annual Screening 06/24/2024 Influenza Vaccine (#1) 2025 , 05/20/2019, 02/27/2018, Additional history exists COVID-19 Vaccine (2024- season) 2025 07/11/2021, 08/09/2020, 07/22/2020 Pneumococcal Vaccine: Pediatric (0-5 Years) and At-Risk Patients (6-50 Years) Aged Out 05/19/2001, 03/14/2001, 01/08/2001 No longer eligible based on patient's age to complete this topic Hepatitis B Vaccines Completed 08/01/2001, 2000, 2000 Varicella Vaccines Completed 01/08/2008, 02/16/2002 HPV Vaccines Completed 04/12/2014, 10/2013, 04/09/2013 Insurance MOY LUDWIG [id number] [facility] [employer] Care Teams Sagger Preparer Relationship Specialty Start Date End Date No, Pcp MOY PCP - General 10/02/22
--- OUTSIDE RECORDS SUMMARY | 2025-06-09 15:55 | XMS_ITS | Patient Health Record ---
Author Organization [facility] Address [address] [place] [address] Care Team Providers Care Speech And Language Tutor Name Role Phone Roxana Gonzalez MD Primary Care Provider Keesha Stock Unavailable [phone] Allergies No Known Allergies Reason For Referral No Information Social History Tobacco Use: Social History Observation Description Date Details (start date - stop date) Never Smoker NA - NA Alcohol Screen Question Answer Notes Did you [...] Negative Encounters Encounter [facility] Date [facility] [address] [facility] [address] [place] [address] 03/30/2025 Keesha Cross Plan Of Treatment Next Appt Details Provider Name:Kateryna sterling, 06/14/2025 02:00:00 PM, [address] [place], [address], Insurance Providers Payer Name Payer Address Payer Phone Subscriber Number Group Number Insured Name Patient Relationship to Insured Coverage Start Date Coverage End Date [facility] [id number] [place] [address] [id number] All Myles Natural Child - Insured has Financial Responsibility 0 Medical (General) History Medical History History ICD Code Headaches/Migraines Surgical History Surgery Date(Month/Year) ACL Reconstruction, minor scar tissue cl tushar out 11/23/21
--- OUTSIDE RECORDS SUMMARY | 2025-06-09 15:56 | XMS_ITS | Encounter Summary ---
Author Organization [facility] Address [address] [place] [address] Phone Care Team Providers Care Electrician Crane Maintenance Name Role Phone Pcp, Unknown Primary Care Provider Roxana Montano MD Primary Care Provider [phone] Reason for Referral * Physical Therapy (Routine) - Closed Specialty Diagnoses / Procedures Referred By Contac t Referred To Contact Physical Therapy Diagnoses Encounter for rehabilitation Edison Bailey MD [address] [place] [address] Phone: tel: fax: [address] [address] Phone: tel: Referral ID Status Reason Start Date Expiration Date Visits Re quested Visits Authorized [id number] Closed 12/26/2022 06/23/2023 37 [phone] Encounter Details Date Type Department Care Team (Latest Contact Info) Description 11/30/2022 Transcribe Orders [facility] [address] [place] [address] Edison Bailey MD [address] [place] [address] Encounter for rehabilitation (Primary Dx) Social History [...] with a working camera? Not on file Comments Unknown Sex and Gender Information Value Date Recorded Sex Assigned at Not on file Legal Sex Female 9:46 AM EDT Gender Identity Not on file Sexual Orientation Not on file documented as of this encounter Plan of Treatment Scheduled Referrals Name Type Priority Associated Diagnoses Orde r Schedule Ambulatory referral to [facility] Physical Therapy Outpatient Referral Routine Encounter for rehabilitation Ordered: 11/30/2022 documented as of this encounter Visit Diagnoses Diagnosis Encounter for rehabilitation- Primary documented in this encounter Care Teams Electrician Crane Maintenance Relationship Specialty Start Date End Date Pcp, Unknown PCP - General 12/05/21 06/05/25 Roxana Gonzalez MD [address] [place] [address] PCP - General Internal Medicine 06/06/25 documented as of this encounter Additional Source Comments The information contained in this document represents components of the legal health record. It is not the complete legal health record.[facility]
== END 2025-06-09 15:57 | disposition home or self-care (01) ==
LOC: HO.HMCC 12:01
PROVIDERS: PCP Internal Medicine; Visit Provider Internal Medicine
DX: R10.9 Unspecified abdominal pain (principal); R79.89 Other specified abnormal findings of blood chemistry

== ENCOUNTER 2025-06-10 08:15 | Outpatient (REF) | payer BC, SELFPAY ==
--- OUTSIDE RECORDS SUMMARY | 2025-03-30 08:00 | XMS_ITS ---
Author Organization [facility] Address [address] [place] [address] Care Team Providers Care Forklift Driver Name Role Phone Roxana Gonzalez MD Primary Care Provider Keesha Stock Unavailable [phone] Allergies No Known Allergies Social History Tobacco Use: Social History Observation Description Date Details (start date - stop date) Never Smoker NA - NA Tobacco use other than smoking: Question Answer Notes Are you an other tobacco user? No Tobacco Control (Standard) Question Answer Notes Tobacco use: Nonsmoker Additional Findings: Tobacco non-user Current no nsmoker AUDIT-C (Standard) Question Answer Notes Did you have a drink containing alcohol in the p ast year? No Points 0 Interpretation Negative Encounters Encounter Location Date Provider Diagnosis [address] [address] 03/30/2025 Keesha Cross Plan Of Treatment Next Appt Details Provider Name:Kateryna sterling, 06/14/2025 02:00:00 PM, [address] [place] [address], [phone], Progress Notes * Vida WITTDOB:2000 (24 yo F)Acc No.[id number]:03/30/2025 Progress Notes Patient: Vida LOWE Provider: Aristides Cross DPM :2000 A ge:24 Y S ex:Female Date:03/30/2025 Address:[address] [place], [place] [address], [id number] Pcp:Roxana Gonzalez MD Subjective: * Chief Complaints: * * ROS: G eneral/Constitutional: Nausea d enies. V omiting d enies. H bakari Thirst d enies. L oss appetite d enies. C hills d enies. F atigue d enies.?Fever d enies. N ight Sweats d enies. U nexplained weight loss d enies. U nexplained weight gain d enies. H EENTM: Dentures d enies. D izziness d enies. G lasses/contacts a dmits. R etinopathy d enies. B lurred/double vision d enies. T MJ?denies. D ischarge/drainage d enies. I mplants d enies. S ore throat d enies. D ental implants d enies. H corrine of hearing d enies. D ifficulty chewing/swallowing/speaking d enies. N ose bleeds d enies. S ore mouth d enies. ? R espiratory: On Oxygen d enies. P neumonia/pleurisy d enies.?Bronchitis d enies. E mphysema d enies. C oughing d enies. C ough blood?denies. S hortness of breath d enies. W heezing d enies. 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 M EDITOR MANAGING NEWSPAPER d enies. W PW d enies. C HF d enies. H eart attack d enies. S eptal defect d enies. R apid beat d enies. C hest pain d enies. A trial Fib. d enies. M urmur/Palpitations d enies. G astrointestinal: Hemorrhoids d enies. S tomach/Abdominal pain d enies. D ark blood stool d enies. I rritable bowel d enies. C onstipation d enies. D iarrhea d enies. H ematology: Swelling d enies. C lots d enies. V aricose Veins d enies. B ruising d enies. B leeding problem d enies. G enitourinary: Blood urine d enies. F requent/Painfu/urination/bladder control d enies. K idney stones d enies. I nfection (UTI) d enies. N ephropathy d enies. s ex trans dis (STD) d enies. P rostate d enies. M usculoskeletal: Hammertoes d enies. B unions d enies. B ack Pain d enies. M uscle Cramps/ Resting d enies. M uscle cramps / walking d enies.?Generalized aches and pains d enies. W eakness d enies. I nteg.: Alexander d enies. S cars d enies. C orns/calluses?denies. I ngrown nails d enies. P ainful nails d enies. O pen Sores d enies. R ashes d enies. N eurologic: Difficulty sleeping d enies. B rain disorder d enies. N umbness d enies. B alance trouble d enies. C onfusion d enies. F ainting/blackouts d enies. T ingling d enies. T remors d enies. * Medical History: H eadaches/Migraines. * Surgical History: A CL Reconstruction, minor scar tissue clean out 11/23/21. * Family History: M other: alive. F ather: alive, diagnosed with Unspecified essential hypertension. M aternal Grand Mother: poor circulation, diagnosed with Family history of arthritis. P aternal Grand Mother: diagnosed with Family history of arthritis. P aternal Grand Father: diagnosed with Family history of arthritis. M aternal Grand Father: diagnosed with Family history of arthritis, Unspecified essential hypertension, Other malignant neoplasm of unspecified site. M aternal aunt: diagnosed with Unspecified heart disease. * Social History: T obacco Use: T obacco use other than smoking A re you an other tobacco user? N o Tobacco Control (Standard) T obacco use: N onsmoker A dditional Findings: Tobacco non-user C urrent nonsmoker M iscellaneous: C affeine: yes. Children: no. Exercise: yes, yoga, weight training, walking, hiking. Marital status: Single. Occupation: between jobs. D rug/Alcohol: A TELMA-C (Standard) D id you have a drink containing alcohol in the past year? N o P oints 0 I nterpretation N egative * Allergies: N .K.D.A. Objective: * Vitals: Assessment: Plan: * Treatment: * Images: * The named appointment provid er may or may not be the originator of this progress note, and it is not deemed complete until electronically signed by the appointment provider. Sign off status: Pending * Provider: Aristides Cross DPM Date: Generated for Reji clayton/Phillip/Carlositting on: 08/11/2024 08:28 AM EST
--- OUTSIDE RECORDS SUMMARY | 2025-06-10 08:28 | XMS_ITS | Encounter Summary ---
Author Organization [facility] Address [address] [place] [address] Phone Care Team Providers Care Sound Engineer Name Role Phone Tabitha Cook MD Primary Care Provider [phone] Encounter Details Date Type Department Care Team (Late st Contact Info) Description 10/22/2016 Documentation [facility] [place] [address] [place], [place] [phone] Family Medicine, Physician [facility] [place] [address] Social History Tobacco Use Types Packs/Day Years [...] on filedocumented in this encounter Care Teams Sound Engineer Relationship Specialty Start Date End Date Tabitha Cook MD PCP - General Pediatrics 01/17/21 10/03/22 documented as of this encounter
--- OUTSIDE RECORDS SUMMARY | 2025-06-10 08:29 | XMS_ITS | Encounter Summary ---
Author Organization [facility] Address [address] [place] [address] Phone Care Team Providers Care Freight Loading Supervisor Name Role Phone Tabitha Cook MD Primary Care Provider [phone] Encounter Details Date Type Department Care Team (Late st Contact Info) Description 08/19/2010 Documentation [facility] [place] [address] [place], [place] [phone] Family Medicine, Physician [facility] [place] [address] Social History Tobacco Use Types Packs/Day Years [...] on filedocumented in this encounter Care Teams Freight Loading Supervisor Relationship Specialty Start Date End Date Tabitha Cook MD PCP - General Pediatrics 01/17/21 10/03/22 documented as of this encounter
--- OUTSIDE RECORDS SUMMARY | 2025-06-10 08:29 | XMS_ITS | Encounter Summary ---
Author Organization [facility] Address [address] [place] [address] Phone Care Team Providers Care Parole Agent Name Role Phone Tabitha Cook MD Primary Care Provider [phone] Encounter Details Date Type Department Care Team (Late st Contact Info) Description 10/22/2013 Documentation [facility] [place] [address] [place], [place] [phone] Family Medicine, Physician [facility] [place] [address] Social History Tobacco Use Types Packs/Day Years [...] on filedocumented in this encounter Care Teams Parole Agent Relationship Specialty Start Date End Date Tabitha Cook MD PCP - General Pediatrics 01/17/21 10/03/22 documented as of this encounter
--- OUTSIDE RECORDS SUMMARY | 2025-06-10 08:29 | XMS_ITS | Encounter Summary ---
Author Organization [facility] Address [address] [place] [address] Phone Care Team Providers Care Paralegal Specialist Name Role Phone Tabitha Cook MD Primary Care Provider [phone] Encounter Details Date Type Department Care Team (Late st Contact Info) Description 02/07/2017 Conversion Encounter [facility] - [address] [address] Social History Tobacco Use Types Packs/Day Years [...] on filedocumented in this encounter Care Teams Paralegal Specialist Relationship Specialty Start Date End Date Tabitha Cook MD PCP - General Pediatrics 01/17/21 10/03/22 documented as of this encounter
--- OUTSIDE RECORDS SUMMARY | 2025-06-10 08:29 | XMS_ITS | Encounter Summary ---
Author Organization [facility] Address [address] [place] [address] Phone Care Team Providers Care Track Watchman Name Role Phone Tabitha Cook MD Primary Care Provider [phone] Encounter Details Date Type Department Care Team (Late st Contact Info) Description 08/30/2016 Documentation [facility] [place] [address] [place], [place] [phone] Family Medicine, Physician [facility] [place] [address] Social History Tobacco Use Types Packs/Day Years [...] on filedocumented in this encounter Care Teams Track Watchman Relationship Specialty Start Date End Date Tabitha Cook MD PCP - General Pediatrics 01/17/21 10/03/22 documented as of this encounter
--- OUTSIDE RECORDS SUMMARY | 2025-06-10 08:29 | XMS_ITS | Clinical Summary ---
Author Organization [facility] Address [address] [place] [address] Phone Care Team Providers Care Vial Gauger Name Role Phone Unavailable Primary Care Provider Unavailabl e Allergies No known active allergies Medications ciclopirox 0.77 % cream APPLY TOPICALLY TO FEET TWICE DAILY. REPEAT NEEDED 1 Active Active Problems Problem Noted Date Diagnosed Date New ACL tear, right, initial encounter 2 Overview (01/06/2022): 09/2021, S/p post surgical repair 11/[address] Bailey at [facility] Assessment & Plan (01/06/2022 11:17 AM EDT): Pt compliant with post-operative bracing and care. Followed by [facility]. Sports PE form completed today allowing Rugby [...] of hip, No family history of *Sudden /[place] under 55, Family history of Cancer, Family history of Allergies, No family history of Seizure disorder, No family history of ADD/ADHD, Family history of *CVA/Stroke, No family history of Deafness, No family history of Asthma, Family history of Sudden /[place] under 55, Family history of Melanoma, No [...] Men B Vaccine Completed 05/20/2019, 10/10/2018 Insurance [facility] [employer]
--- OUTSIDE RECORDS SUMMARY | 2025-06-10 08:29 | XMS_ITS | Clinical Summary ---
Author Organization [address] Counts include [facility] beds at the [facility] Address [address] [place] [address] Phone Care Team Providers Care Oven Builder Name Role Phone Physician, No Pcp Primary [...] LAB MICROBIOLOGY METHOD 08/04/2024 1:11 PM EST [facility] Chlamydia, RNA Probe Negative Negative LAB MICROBIOLOGY METHOD 08/04/2024 1:11 PM EST [facility] Brushing/Spatula Cervix uteri structure / Unknown 07/31/2024 3:01 PM EST 08/04/2024 6:40 AM EST Debra MUELLER LAB CYTOLOGY ORDERABLES Final Result Performing Organization Address City/State/[facility] Co de Phone Number [facility] [address] [place] [address], * Pap smear (07/31/2024 3:01 PM EST) Interpretation Negative for intraepithelial lesion or malignancy 08/06/2024 10:00 AM EST [facility] at 1000 EST General Categorization Negative 08/06/2024 10:00 AM EST [facility] LMP 07/08/2024 08/06/2024 10:00 AM EST [facility] Specimen Adequacy Satisfactory for evaluation, endocervical/[place] sformation zone component present 08/06/2024 10:00 AM EST [facility] Pap Methodology Liquid Based Pap Test 08/06/2024 10:00 AM EST [facility] Disclaimer The Pap test is a screening test which carries an inherent false negative rate. These test results should be correlated with the patient's clinical findings and history. This Pap test was processed using an automated screening system. Technical cytopathology services provided by [facility], at [address] [place] [address] (CLIA # [id number]/Albertina Martin MD, Continuous Drier Helper.) 08/06/2024 10:00 AM [facility] Console Pap Interpretation Reported 08/06/2024 10:00 AM [facility] Brushing/Spatula Cervix uteri structure / Unknown 07/31/2024 3:01 PM EST 07/31/2024 3:01 PM EST Debra MUELLER LAB CYTOLOGY ORDERABLES Final Result [facility] [address] [place] [address], from Last 3 Months or Most Recently Relevant to Health Maintenance Insurance [facility] Care Teams Oven Builder Relationship Specialty Start Date End Date Physician, No Pcp PCP - General 05/07/24
--- OUTSIDE RECORDS SUMMARY | 2025-06-10 08:29 | XMS_ITS | Patient Health Record ---
Author Organization [facility] Address [address] [place] [address] Care Team Providers Care Home Health Registered Nurse Name Role Phone Roxana Gonzalez MD Primary Care Provider Keesha Stock Unavailable [phone] Allergies No Known Allergies Reason For Referral [...] Negative Encounters [facility] [address] [facility] [address] [place] [address] 03/30/2025 Keesha Cross Plan Of Treatment Next Appt Details Provider Name:Kateryna sterling, 06/14/2025 02:00:00 PM, [address] [place], [address], Insurance Providers Payer Name Payer Address Payer Phone Subscriber Number Group Number Insured Name Patient Relationship to Insured Coverage Start Date Coverage End Date [facility] [id number] [place] [address] [id number] All [employer] Natural Child - Insured has Financial Responsibility 0 Medical (General) History Medical History History ICD Code Headaches/Migraines Surgical History Surgery Date(Month/Year) ACL Reconstruction, minor scar tissue cl tushar out 11/23/21
--- OUTSIDE RECORDS SUMMARY | 2025-06-10 08:29 | XMS_ITS | Clinical Summary ---
Author Organization [facility] Address [address] [place] [address] Care Team Providers Care Director Of Physical Security Name Role Phone No, Pcp Primary Care [...] (10/28/2021): Added automatically from request for surgery [id number] Acute pain of right knee 07/12/2021 Family [...] Completed 04/12/2014, 10/2013, 04/09/2013 Insurance MOY [id number] [facility] [employer] Care Teams Director Of Physical Security Relationship Specialty Start Date End Date No, Pcp MOY PCP - General 10/02/22
[2025-06-10 10:23] LABS: MANUAL DIFF FLAG NO
[2025-06-10 10:40] LABS: Hematocrit 37.5 % (37.0-47.0); Hemoglobin 12.7 g/dl (12.0-16.0); Imm Gran Abs Auto 0.01 X10*3/uL (0.00-0.03); Imm Gran Pct Auto 0.2 % (0.0-0.4); Lymphocytes Absolute Auto 2.2 X10*3/uL (1.2-4.9); Mean Corpuscular HGB Conc 33.9 g/dl (31.0-35.0); Mean Corpuscular Hemoglobin 30.9 pg (27.0-33.0); Mean Corpuscular Volume 91.2 fL (80.0-98.0); NRBC Abs Auto 0.000 X10*3/uL (0.0-0.012); NRBC Pct Auto 0.0 /100WBC (0.0-0.2); Platelet Count 271 X10*3/uL (160-400); Red Blood Count 4.11 X10*6/uL (4.20-5.50); White Blood Count 5.6 X10*3/uL (4.8-10.8)
[2025-06-10 11:17] LABS: Alanine Aminotransferase 467 U/L (0-31); Albumin Level 4.7 g/dL (3.5-5.0); Alkaline Phosphatase 212 U/L (39-117); Anion Gap 12 (12-20); Aspartate Amino Transferase 168 U/L (5-31); Blood Urea Nitrogen 14 mg/dL (9-16); Calcium 9.3 mg/dL (8.4-10.2); Carbon Dioxide 25 mmol/L (22-29); Chloride 106 mmol/L (96-108); Estimated Glomerular Filt Rate > 60; Iron 166 mcg/dL (30-160); Percent Iron Saturation 52 % (15-50); Potassium 4.7 mmol/L (3.3-5.1); Sodium 138 mmol/L (135-145); Total Iron Binding Capacity 319 mcg/dL (228-428); Total Protein 7.0 g/dL (6.5-8.0); Unsaturated Iron Binding 153 ug/dL
[2025-06-10 11:20] LABS: Folate 12.9 ng/mL (> or = 4.0); Vitamin B12 653 pg/mL (200-900)
[2025-06-10 13:51] LABS: HBS Num1 0.10 mIU/mL (0-7.99); HBc Num1 0.09 S/CO (0.00-0.79); HBsAGNum1 0.27 S/CO (0.00-0.99); Hepatitis A Antibody IgM 0.25 Index (0-0.79); Hepatitis B Surface Antigen Negative (Negative); ~HepC Num1 0.07 S/CO (0.00-0.79); ~Hepatitis A Antibody IgM Nonreactive (Nonreactive); ~Hepatitis B Surface Antibody NONREACTIVE (Nonreactive); ~Hepatitis C Antibody Nonreactive (Nonreactive)
[2025-06-10 14:22] LABS: Appearance Urine Cloudy; Glucose Urine UA Negative (Negative); PH 6.5 (5.0-9.0); Specific Gravity - Urine <= 1.005 (1.005-1.025)
== END 2025-06-10 08:16 | disposition home or self-care (01) ==
LOC: HO.HMGCLDS 08:15
PROVIDERS: PCP Internal Medicine; Visit Provider Internal Medicine
DX: Z01.84 Encounter for antibody response examination (principal); Z13.29 Encounter for screening for other suspected endocrine disorder; Z13.0 Encounter for screening for diseases of the blood and blood-forming organs and certain disorders involving the immune mechanism; Z13.21 Encounter for screening for nutritional disorder; R10.9 Unspecified abdominal pain
CPT/HCPCS: 36415; 80053; 81001; 82306; 82607; 82746; 83540; 84443; 85025; 86308; 86704; 86706; 86709; 86803; 87338; 87340